=== PATIENT | female | born 1965 | race Caucasian/White ===

== ENCOUNTER 2018-06-28 10:00 | Outpatient (RCR) | payer BC, SELFPAY ==
--- NOTE | 2018-06-17 11:50 | PTTR_ITS ---
DATE: 06/17/18 SUBJECTIVE: Kaela states she was really down and out at her last visit. States she hasn't been very motivated to do anything physically. Two days ago she finally turned the corner, starting a walking program, walking 3 to 5 miles each day, as well as being compliant with her HEP of cervical stabilization. She is looking to play golf later today. OBJECTIVE: Manual therapy: (23806v6). Cervical mobs, up slips, down slopes, lateral glides, METs into rotation left and right followed by upper trapezius stretching using hold relax technique in supine. Also, performed an OA release. Direct treatment time: 9:00 til 9:30 A.M. She declined the need for ice, heat or estim post treatment. Plan: Continue as indicated above progressing cervical stabilization as tolerated. MM/gc
--- NOTE | 2018-06-23 10:00 | PTTR_ITS ---
DATE: 06/23/18 SUBJECTIVE: Stated her neck is doing pretty good today. Was able to golf evening and has been busy working on her house, fixing windows and siding. Bilateral traps are sore today, but feels like this is more use soreness like she exercised them too hard. Doing well with turning her head when driving. Has been doing her HEP and it is going well. Feels better overall now that she is getting out walking again. Had a stressful morning dealing with an employee. OBJECTIVE: Manual therapy: (35416a1). Patient received mobilization of neck and upper back while in supine and prone positions. This included OA release, upslips, down slopes and lateral glides, PRT to upper traps and lev scap. TPM to SCMs and pectoralis musculature. Soft tissue stretching into cervical rotation to the right and left. Transitioned to prone for TPM to rhomboids and mid trap regions. Therapeutic procedures (73543z1). * x HEP review: Added phase 3 of cervical stabilization exercises to HEP today. Patient was able to perform this exercise appropriately while in clinic today. See photocopy scanned into file for details. * x Provided skilled instruction in proper exercise performance * x Provided skilled manual cues to facilitate proper muscle recruitment and/ or movement pattern * Declined need for MHP or cryotherapy at conclusion of session. Direct treatment time: 35 minutes Total treatment time: 35 minutes
--- NOTE | 2018-06-28 10:30 | PTTR_ITS ---
DATE: 06/28/18 Co-treat with supervising PT, Kamron Lin. OBJECTIVE: Manual therapy: (88491g7). Performed STM to upper traps, lev scap, scalenes, SCMs and rhomboids post mobilization with supervising PT. Utilized tendon massage along the occiput, cervical and upper thoracic vertebrae and medial scap border. PRTs to upper traps, lev scap, scalenes and TPM to SCMs and rhomboids were also performed. Therapeutic procedures (81049h3). * x HEP review: Reviewed HEP of phase 2 AROM and phase 3 Unweighing head with patient to check for accuracy. Declined need for modalities at conclusion of session. Direct treatment time: 25 minutes Total treatment time: 25 minutes, post time spent with supervising PT.
--- NOTE | 2018-06-28 13:07 | PTTR_ITS ---
DATE: 06/28/18 SUBJECTIVE: Kaela continues to complain of left elbow discomfort. She does give consent for integrated dry needling for both her neck and her elbow. Overall, is complaining of generalized shoulder discomfort, but thinks it is more due to physical activity, handing out planks of wood to her as they reside their home and doing some carpentry work. Did play some golf last week, and held up well. Reports compliancy with her HEP. OBJECTIVE: Manual therapy: (36802v1). Cervical mobs, up slips, down slopes, lateral glides at a Grade 3 in the upper half of the cervical spine as well as AAROM into rotation and side bending. She also rec'd integrated dry needling (watts basis). Homeostatic points used: bilateral greater occipital with 1, left spinal accessory with 1, left dorsal scapula with 1, left supra scapula with 1, left antebrachial cutaneous with 1 and left deep radial with 1. Symptomatic points; 3 locations in the common extensor muscle belly with 1 needles. She completed the remainder of treatment with a [employer]. For details see her note. Direct treatment time: 15 min. Total treatment time: 30 min. Assessment: Continues to make functional improvements and increasing activity, i.e. playing golf, now, recreationally without significant limitation. Does present with signs of a lateral epicondylitis, pain with resisted wrist extension. Did issue her a HEP of self maintenance exercises, i.e. stretching. Plan: Follow up with Kaela next week. MM/gc
--- NOTE | 2018-07-06 09:02 | NT_ITS ---
07/06/18 Patient called to [facility] [place] her appt for tomorrow stating she was going to be out of town for a week or so and will contact us when she gets back. MM/dl
== END 2018-07-16 23:59 | disposition home or self-care (01) ==
LOC: PT 10:00
PROVIDERS: Referring Provider Family Medicine; Visit Provider Family Medicine
DX: M54.2 Cervicalgia (principal); Z47.89 Encounter for other orthopedic aftercare
CPT/HCPCS: 97110; 97140

== ENCOUNTER 2019-03-29 13:11 | Outpatient (CLI) | payer BC, SELFPAY ==
--- NOTE | 2019-03-29 13:00 | DI.RAD_ITS ---
SYMPTOMS/DIAGNOSIS: DYSPNEA, R06.00 PA AND LATERAL CHEST: Comparison is made with 3Dec10. The cardiac and mediastinal contours have a normal appearance. The lungs are well inflated and clear. No infiltrate, effusion or pulmonary edema is seen. The spine appears intact. IMPRESSION: Negative chest x-ray.
[2019-03-29 14:01] LABS: Abs Immature Grans 0.01 k/cumm (0.0-0.09); Absolute Basophil Count 0.05 k/cumm (0.0-0.2); Absolute Eosinophil Count 0.92 k/cumm (0.0-0.7); Absolute Lymphocyte Count 1.48 k/cumm (1.2-3.4); Absolute Monocyte Count 0.53 k/cumm (0.11-0.7); Absolute Neutrophil Count 6.11 k/cumm (1.2-6.7); Basophils % 0.5; Eosinophils % 10.1; HCT 39.1 % (36.0-46.0); HGB 13.4 g/dL (12.0-15.5); Immature Grans % 0.1; Lymphocytes % 16.3; Mean Corp. HGB Concentration 34.3 g/dL (32.0-36.0); Mean Corpuscular Hemoglobin 30.8 pg (27.0-33.0); Mean Corpuscular Volume 89.9 fL (80-95); Mean Platelet Volume 10.3 fL (8.0-11.0); Monocytes % 5.8; Neutrophils % 67.2; Platelet Count 230 x1000/uL (130-400); RBC 4.35 m/cumm (4.00-5.20); RBC Distribution Width 12.3 % (11.7-14.6)
[2019-03-29 14:37] LABS: ALT 26 U/L (12-78); AST 17 U/L (15-37); Albumin 4.4 g/dL (3.4-5.0); Alkaline Phosphatase 73 U/L (46-116); Anion Gap 11.3 mmol/L (3-11); BUN 17 mg/dL (7-18); Bilirubin, Total 0.5 mg/dL (0.2-1.0); CO2 26.7 mmol/L (21.0-32.0); CREATININE 0.78 mg/dL (0.55-1.02); Chloride 103 mmol/L (98-107); Glucose 100 mg/dL (70-100); Potassium 3.8 mmol/L (3.5-5.1); Sodium 141 mmol/L (136-145); Total Protein 7.3 g/dL (6.4-8.2)
== END 2019-03-29 13:31 ==
PROVIDERS: Visit Provider Family Medicine
DX: R06.00 Dyspnea, unspecified (principal)
CPT/HCPCS: 36415; 80053; 71046; 85025

== ENCOUNTER 2019-04-05 01:34 | Outpatient (CLI) | payer BC, SELFPAY ==
--- NOTE | 2019-04-05 | PFT_ITS ---
PULMONARY FUNCTION TEST REPORT Patient - Kaela Abreu 63 DATE OF SERVICE April 05, 2019 REQUESTING PROVIDER Tk Yang M.D. INTERPRETATION OF STUDY Spirometry shows mild obstructive airways disease with significant bronchodilator response. LUNG VOLUMES - Lung volumes show no evidence of restriction. DIFFUSION CAPACITY- Normal. AIRWAY RESISTANCE - Elevated. IMPRESSION Mild obstructive airways disease with significant bronchodilator response. This is associated with elevated airways resistance. When this study was compared to previous one from 01/14/2010, the patient has an overall 60 cc decline in FVC and FEV1 has remained stable. Overall the pulmonary function tests have been stable. Clinical correlation recommended. Hetal Handley M.D. ZIGGY/ T-05-22-19
[2019-04-05] MEDS: Inhaler, Assist Device 1 EACH MC (08:51)
[2019-04-05] MEDS: Albuterol HFA 18 GM 200 PUFF INH IH (08:51)
== END 2019-04-05 01:54 ==
PROVIDERS: Visit Provider Family Medicine
DX: R06.09 Other forms of dyspnea (principal); R05 Cough; R06.2 Wheezing; J98.8 Other specified respiratory disorders
CPT/HCPCS: 94060; 94150; 94726; 94729

== ENCOUNTER 2019-04-19 01:42 | Outpatient (CLI) | payer BC, SELFPAY ==
[2019-04-19] MEDS: Normal Saline Flush 10 ML SYR IVP (08:45)
[2019-04-19] MEDS: Gadoterate meglumine 20 ML VIAL 13 ML IVP (08:46)
--- NOTE | 2019-04-19 09:01 | DI.MRI_ITS ---
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 CERVICAL SPINE MRI: MRI examination of the cervical spine was performed utilizing the usual protocol with additional pre and post contrast T 1 weighted axial and sagittal fat sat images. The examination is compared to the previous examination of 09/02/17. The patient has had an interval C 6-7 fusion. Metallic artifact obscures the anterior to mid spinal canal at the C 6-7 level. No significant bony signal abnormality or enhancement identified at the levels visualized. Note is again made of mild bilateral neural foraminal narrowing at C 3-4 as seen on the previous examination. There may be slight left sided neural foraminal narrowing at C 4-5 as well. No new disc herniation identified at the levels evaluated but I would note that the intervertebral disc was not visualized at C 6-7 and the spinal canal cannot be adequately evaluated at this level. Spinal cord as visualized shows normal signal and normal diameter throughout. CONCLUSION: Artifact obscures C 6-7 disc level. Stable appearance of the cervical spine and spinal cord with no significant lesion apart from mild bilateral neural foraminal narrowing at C 3-4.
== END 2019-04-19 02:02 ==
PROVIDERS: PCP Family Medicine; Visit Provider Family Medicine
DX: M54.12 Radiculopathy, cervical region (principal); R20.2 Paresthesia of skin; Z98.1 Arthrodesis status
CPT/HCPCS: 72156

== ENCOUNTER 2019-06-06 09:04 | Outpatient (REF) | payer BC, SELFPAY ==
--- NOTE | 2019-06-06 08:45 | PAPFT_PTH ---
PATIENT: Kaela Abreu LOC: [facility] U#:[id number] AGE/SX: 54/F ROOM: RE06/06/[address]: Shelley Ogden : 1965 BED: DIS: 06/06/2019 SPEC #: [id number] RECD: 06/06/19 11:27 STATUS: SOMMER RECaroline #: [id number] ZAINAB: 06/06/19 08:[address]: Shelley Ogden DEPT: [facility] Cytology RECD BY: Denita Wilkerson ENTERED: 06/06/19 11:28 SP TYPE: PAPFT OTHR DR: Tk Yang MD Tissues: 1 - CX/ENDOCX FOR PAP SMEARS Procedures: PAP THIN PREP/UVM Screening HPV DNA PROBE Comments: [id number]
== END 2019-06-06 09:24 ==
LOC: LBN 09:04
PROVIDERS: PCP Family Medicine; Visit Provider Obstetrics & Gynecology Gynecology
DX: Z12.4 Encounter for screening for malignant neoplasm of cervix (principal); Z11.51 Encounter for screening for human papillomavirus (HPV)
CPT/HCPCS: 88142; 87624

== ENCOUNTER 2019-06-24 02:21 | Outpatient (CLI) | payer BC, SELFPAY ==
--- NOTE | 2019-06-24 08:30 | DI.MAMMO_ITS ---
SYMPTOM/DIAGNOSIS: SCREENING, Z12.31 MAMMOGRAMS: Mammograms were interpreted according to the usual protocol including computer analysis with CAD system, tomosynthesis and C view imaging. The breasts are of moderate density with fairly symmetrical distribution of fibroglandular tissue. No dominant mass or clumped microcalcification is identified in either breast. Current examination is compared with previous examinations including 05/2017 and there has been no gross interval change in appearance in comparison with the previous studies. CONCLUSION: No specific evidence of malignancy at this time. Routine screening examinations are suggested at yearly intervals in this age group according to the ACS/ACR guidelines. Category 1. Breast density, Category B. MQSA ASSESSMENT OF FINDINGS: Negative. Category 1. Patient will receive a letter notifying them of these results. BI-RADS category B. There are scattered areas of fibroglandular density.
== END 2019-06-24 02:41 ==
PROVIDERS: PCP Family Medicine; Visit Provider Obstetrics & Gynecology Gynecology
DX: Z12.31 Encounter for screening mammogram for malignant neoplasm of breast (principal)
CPT/HCPCS: 77063; 77067

== ENCOUNTER 2019-08-23 11:19 | Outpatient (CLI) | payer BC, SELFPAY ==
[2019-08-23 13:16] LABS: Abs Immature Grans 0.01 k/cumm (0.0-0.09); Absolute Basophil Count 0.03 k/cumm (0.0-0.2); Absolute Eosinophil Count 0.32 k/cumm (0.0-0.7); Absolute Lymphocyte Count 1.33 k/cumm (1.2-3.4); Absolute Monocyte Count 0.45 k/cumm (0.11-0.7); Absolute Neutrophil Count 4.64 k/cumm (1.2-6.7); Basophils % 0.4; Eosinophils % 4.7; HCT 38.3 % (36.0-46.0); HGB 13.1 g/dL (12.0-15.5); Immature Grans % 0.1; Lymphocytes % 19.6; Mean Corp. HGB Concentration 34.2 g/dL (32.0-36.0); Mean Corpuscular Hemoglobin 30.9 pg (27.0-33.0); Mean Corpuscular Volume 90.3 fL (80-95); Mean Platelet Volume 10.2 fL (8.0-11.0); Monocytes % 6.6; Neutrophils % 68.6; Platelet Count 282 x1000/uL (130-400); RBC 4.24 m/cumm (4.00-5.20); RBC Distribution Width 12.3 % (11.7-14.6); White Blood Cell Count 6.78 k/cumm (4.4-10.8)
[2019-08-23 13:21] LABS: ALT 41 U/L (14-59); AST 32 U/L (15-37); Albumin 4.2 g/dL (3.4-5.0); Alkaline Phosphatase 75 U/L (46-116); Anion Gap 6.7 mmol/L (3-11); BUN 18 mg/dL (7-18); Bilirubin, Total 0.4 mg/dL (0.2-1.0); CO2 31.3 mmol/L (21.0-32.0); CREATININE 0.88 mg/dL (0.55-1.02); Calcium 8.9 mg/dL (8.5-10.1); Chloride 103 mmol/L (98-107); Glucose 84 mg/dL (70-100); Potassium 4.6 mmol/L (3.5-5.1); Sodium 141 mmol/L (136-145); Total Protein 7.3 g/dL (6.4-8.2)
[2019-08-23 13:29] LABS: Bilirubin Negative (Negative); Blood Negative (Negative); Clarity Clear (Clear); Glucose Negative (Negative); Ketones Negative (Negative); Leukocyte Esterase Small (Negative); Nitrite Negative (Negative); Specific Gravity 1.015 (1.005-1.025); Urobilinogen 0.2 EU/dL (Up TO 0.2)
[2019-08-23 13:38] LABS: RBC Negative (0-2)
[2019-08-23 13:39] LABS: Bacteria Rare HPF (Negative); C & S Indicated? Yes; Casts Negative LPF (Negative); Crystals Negative HPF (Negative); Epithelial Cells Few HPF (Negative); Mucus Trace (Negative); Other Cells Rare Renal (Negative)
== END 2019-08-23 11:39 ==
PROVIDERS: PCP Family Medicine; Visit Provider Family Medicine
DX: Z01.818 Encounter for other preprocedural examination (principal); M54.12 Radiculopathy, cervical region
CPT/HCPCS: 36415; 80053; 81003; 81015; 85025; 87086

== ENCOUNTER 2019-08-26 20:07 | Outpatient (REF) | payer BC, SELFPAY ==
[2019-08-26 19:57] LABS: Bilirubin Negative (Negative); Blood Negative (Negative); Clarity Clear (Clear); Glucose Negative (Negative); Ketones Negative (Negative); Leukocyte Esterase Small (Negative); Nitrite Negative (Negative); Specific Gravity 1.015 (1.005-1.025); Urobilinogen 0.2 EU/dL (Up TO 0.2); pH 5.5 (5-8)
[2019-08-26 20:07] LABS: Bacteria Rare HPF (Negative); C & S Indicated? C&S Done As Ordered; Casts Negative LPF (Negative); Crystals Negative HPF (Negative); Epithelial Cells Many HPF (Negative); Mucus Negative (Negative); Other Cells Few Transitional (Negative); RBC 0-2 (0-2)
== END 2019-08-26 20:27 ==
LOC: LBN 20:07
PROVIDERS: PCP Family Medicine; Visit Provider Family Medicine
DX: N39.0 Urinary tract infection, site not specified (principal)
CPT/HCPCS: 81003; 81015; 87086

== ENCOUNTER 2019-09-01 19:42 | Outpatient (REF) | payer BC, SELFPAY ==
[2019-09-01 19:02] LABS: Bilirubin Negative (Negative); Blood Negative (Negative); Clarity Clear (Clear); Glucose Negative (Negative); Ketones Trace mg/dL (Negative); Leukocyte Esterase Trace (Negative); Nitrite Negative (Negative); Urobilinogen 0.2 EU/dL (Up TO 0.2)
[2019-09-01 19:19] LABS: Bacteria Negative HPF (Negative); C & S Indicated? C&S Done As Ordered; Casts Negative LPF (Negative); Crystals Negative HPF (Negative); Epithelial Cells Few HPF (Negative); Mucus Negative (Negative); Other Cells Negative (Negative); RBC 0-2 (0-2); WBC 0-2 HPF (0-5)
== END 2019-09-01 20:02 ==
LOC: NCHCN 19:42
PROVIDERS: PCP Family Medicine; Visit Provider Family Medicine
DX: Z87.440 Personal history of urinary (tract) infections (principal)
CPT/HCPCS: 81003; 81015; 87086

== ENCOUNTER 2020-07-12 02:31 | Outpatient (CLI) | payer BC, SELFPAY ==
--- NOTE | 2020-07-12 | DI.MRI_ITS ---
EXAM: MR CERVICAL SPINE WO/W CLINICAL HISTORY: ARM NUMBNESS,NECK PAIN,S/P CERVICAL FUSION,DYSESTHESIA,HEADACHE. TECHNIQUE: Multiplanar multisequence MRI was performed. FINDINGS: MR examination of the cervical spine was performed according to the usual protocol. There is a C6-7 fusion and artifact obscures this level. No other significant bony signal abnormality seen. Spinal cord appears of normal diameter and shows normal signal throughout At C2-3 there is mild prominence of the disc osteophyte complex with focal left paracentral prominenc e of the disc osteophyte complex, no gross neural impingement. At C3-4 there is mild bilateral neural foraminal narrowing. No disc herniation or central canal spin al stenosis. At C 4 5, there is mild left-sided neural foraminal narrowing. No disc herniation or central canal s urmila stenosis. At C5-6, there is bilateral neural foraminal narrowing. No disc herniation or central canal spinal s tenosis. At C7-T1 there are no significant findings. IMPRESSION: C6-7 fusion, artifact partially obscures this region, no cord lesion or deformity identified in the c ervical region. Multilevel neural foraminal narrowing as described above. No gross interval change appearance comparison with prior scan of April 2019. DATA REPOSITORY:
--- NOTE | 2020-07-12 | DI.CT_ITS ---
EXAM: CT CERVICAL SPINE WO CLINICAL HISTORY: ARM NUMBNESS,R20.0,S/P CERVICAL FUSION,Z98.1,DYSESTHESIA,R20.8,NECK PAIN, TECHNIQUE: COMPARISON: No exams were available for comparison FINDINGS: CT examination cervical spine was performed to the usual protocol. Note is made disc replacement at C6-7 posterior Ruiz rods bilaterally at this level. Fixation apparatus appears intact well sea jo ann. Minimal endplate hypertrophic changes noted at C6-7 without significant central canal spinal st enosis. Neural foramina appear intact as visualized bilaterally. No gross disc herniation by CT cri teria. Tracheolaryngeal structures and lung apices appear normal. No significant cervical mass or a denopathy. IMPRESSION: Intact posterior fixation hardware and prosthetic disc at C6-7. no other significant findings. RADIATION DOSE DELIVERED: 309.74mGy.cm Total DLP
[2020-07-12] MEDS: Gadoterate meglumine 20 ML VIAL 14 ML IVP (10:27)
== END 2020-07-12 02:51 ==
PROVIDERS: PCP Family Medicine; Visit Provider Neurological Surgery
DX: M48.02 Spinal stenosis, cervical region (principal); R20.0 Anesthesia of skin; M54.2 Cervicalgia; Z98.1 Arthrodesis status
CPT/HCPCS: 72125; 72156

== ENCOUNTER 2021-08-14 01:48 | Outpatient (CLI) | payer BC, SELFPAY ==
--- NOTE | 2021-08-14 07:00 | DI.MAMMO_ITS ---
Exam(s) MAMMO SCREENING EXAM: MAMMO SCREENING CLINICAL HISTORY: screening.Z12.39. TECHNIQUE: Bilateral full field digital CC and MLO mammographic images were obtained with 3D tomosyn thesis and utilizing computer aided detection (CAD). COMPARISON: Prior mammograms dating back to 2014, the most recent being June 2019. FINDINGS: Fibroglandular tissue pattern is moderately dense. There are no CAD designations. There are no new spiculated masses nor malignant appearing microcalcification groups. There is no significant architectural distortion nor skin thickening-retraction. IMPRESSION: Dense bilateral fibroglandular tissue. No obvious radiographic evidence of malignancy nor significan t change compared to prior mammograms listed above. BI-RADS Category 1 - Negative Breast Density - Category C - Heterogeneously dense Breast density Category C or D implies that the patient has dense breast tissue. Dense breast tissue can make it harder to find cancer on a mammogram. Dense breast tissue is also associated with an incr eased risk of breast cancer. This information about the result of the mammogram report was provided to the patient to raise their awareness. Use this report when you speak with the patient about their risks for breast cancer, which includes their family history. At that time, you may recommend additional screening tests (Ultrasoun d or MRI) as these tests may add significant information. A negative radiographic report should not delay biopsy if a dominant or clinically suspicious mass is present. Up to ten percent of cancers are not identified on mammography. A negative report may reinforce clinical impression. Adenosis and dense breasts may obscure an underlying neoplasm. False positive reports average 6 to 10%. Patient will receive a letter notifying them of these results.
== END 2021-08-14 02:08 ==
PROVIDERS: PCP Nurse Practitioner Family; Visit Provider Obstetrics & Gynecology
DX: Z12.31 Encounter for screening mammogram for malignant neoplasm of breast (principal)
CPT/HCPCS: 77063; 77067

== ENCOUNTER 2022-06-20 01:50 | Outpatient (CLI) | payer BC, SELFPAY ==
--- OUTSIDE RECORDS SUMMARY | 2022-06-20 01:53 | XMS_ITS | Encounter Summary ---
:1965 Author Organization [facility] [place] [address] Care Team Providers Name Role Phone Tk Yang MD Primary Care Provider Reason for Referral Diagnostic Test (Routine) - Closed Specialty Diagnoses / Procedures Referred By Contact Refer red To Contact Radiology Diagnoses Cervical radiculopathy Itching Neck pain Justino Gusman MD [facility] Rad Ct Scan Procedures CT MYELOGRAM CERVICAL SPINE [address] [phone] Referral ID Status Reason Start Date Expiration Date Visits V isits Requested Authorized [id number] Closed Specialty 05/16/2019 07/14/2019 1 1 Service Requested Reason for Visit Diagnostic Test (Routine) - Closed Specialty Diagnoses / Procedures Referred By Contact Refer red To Contact Radiology Diagnoses Cervical radiculopathy Itching Neck pain Justino Gusman MD [facility] Rad Ct Scan Procedures CT MYELOGRAM CERVICAL SPINE [address] [address] Referral ID Status Reason Start Date Expiration Date Visits V isits Requested Authorized [id number] Closed Specialty 05/16/2019 07/14/2019 1 1 Service Requested Encounter Details Date Type Department Care Team Description 06/16/[address] Scan at [facility] Justino Gusman, Cervical radiculopathy; [facility]; [facility] [address] [id number] [facility] [phone] Social History Tobacco Use Types Packs/Day Years Used Date Never Smoker Smokeless Tobacco: Never Used Sex Assigned at Date Recorded Not on file documented as of this encounter Medications at Time of Discharge Medication Sig Dispensed Refills Start Date End Date triamcinolone (KENALOG) 0.1 Apply to itchy 60 g 0 /0 06/2017 % Cream areas on arms twice daily for 2 weeks documented as of this encounter Plan of Treatment Not on filedocumented as of this encounter Procedures Procedure Name Priority Date/Time Associated Diagnosis Comme nts CT MYELOGRAM Routine 06/16/2019 3:18 PM Cervical Results f or this CERVICAL SPINE EDT radiculopathy procedure are in Itching the results Neck pain section. documented in this encounter Results CT Myelogram Cervical Spine (06/16/2019 3:18 PM EDT) Anatomical Region Laterality Modality C-spine Computed Tomography Specimen (Source) Anatomical Location Collection Method / Collectio n Time Received Time / Laterality Volume Impressions 06/16/2019 4:35 PM EDT 1. ??Mild spinal canal stenosis at C6-C7 secondary to posterior disc osteophyte complex and buckling of the ligamentum f lavum. 2. ??Neural foraminal narrowing is most pronounced at C3-C4 and C6-C7, as detailed above. I have personally reviewed the image(s) and the residents interpretation and agree with the findings, Torito Ching at 06/16/2019 4:35 PM Thank you for letting us participate in the care of this patient. For questions regarding this report, please contact e number below. ? Narrative 06/16/2019 4:35 PM EDT EXAMINATION: CT MYELOGRAM CERVICAL SPINE CLINICAL HISTORY: hx cervical disc repla cement recurrent cervical radicular symptoms artifact on mri TECHNIQUE: CT myelogram of the cervical spine was p erformed following a fluoroscopic-guided lumbar puncture with instillation of 10 cc of Omnipaque 300 into the subarachnoid space. COMPARISON: MRI of the cervical spine 04/19/2019. Radiographs of the cervical spine 018 and 01/01/2018. FINDINGS: There is unchanged minimal anterolisthes is of C3 on C4. The patient is status post disc replacement at C6-C7. Hardware is intact. No perihardware lucency. Hardware alignment is unchanged. No evid ence of hardware loosening or periprosthetic fracture. No prevertebral soft tissue swelling. ??There is contrast opacification of the subarachno id space surrounding the basal cisterns and cervical spine and upper thoracic sp ine. No intradural filling defects. Normal craniocervical junction. Normal m orphology of the cervical spinal cord. C2-3: Small disc protrusion, eccentric t o the left, produces mild spinal canal narrowing. There are uncovertebral hyper trophic and facet hypertrophic changes. Facet hypertrophic changes are most sign ificant on the left. No neural foraminal narrowing. C3-4: Minimal disc protrusion produces m inimal spinal canal narrowing. There is moderate right and moderate to severe le ft neural foraminal narrowing secondary to uncovertebral and facet hypertrophic changes. C4-5: Minimal disc protrusion. No signif icant spinal canal narrowing. There is mild left and no right neural foraminal narrowing. C5-6: Minimal disc protrusion. No signif icant spinal canal narrowing. There is mild bilateral neural foraminal narrowin g secondary to uncovertebral and facet hypertrophic changes. C6-7: Posterior disc osteophyte complex indents the ventral thecal sac but does not contact the spinal cord. In addition there is buckling of the ligamentum flavum which narrows the posterior epidu ral space. Overall there is mild spinal canal narrowing. There is moderate bilat eral neural foraminal narrowing secondary to uncovertebral and facet hyp ertrophic changes. C7-T1: Normal disc. No spinal canal or n eural foraminal narrowing. Degenerative changes in the left tempora l mandibular joints characterized by subchondral cystic changes in the mandib ular condyle. Visualized mastoid air cells are clear. There is mucosal thicke jimbo of the visualized maxillary sinuses, right greater than left. Visual ized apices are clear. Procedure Note Toriot Ching MD - 06/16/2019Formatt ing of this note might be different from the original. EXAMINATION: CT MYELOGRAM CERVICAL SPINE CLINICAL HISTORY: hx cervical disc repla cement recurrent cervical radicular symptoms artifact on mri TECHNIQUE: CT myelogram of the cervical spine was p erformed following a fluoroscopic-guided lumbar puncture with instillation of 10 cc of Omnipaque 300 into the subarachnoid space. COMPARISON: MRI of the cervical spine 04/19/2019. Radiographs of the cervical spine 018 and 01/01/2018. FINDINGS: There is unchanged minimal anterolisthes is of C3 on C4. The patient is status post disc replacement at C6-C7. Hardware is intact. No perihardware lucency. Hardware alignment is unchanged. No evid ence of hardware loosening or periprosthetic fracture. No prevertebral soft tissue swelling. There is contrast opacification of the subarachno id space surrounding the basal cisterns and cervical spine and upper thoracic sp ine. No intradural filling defects. Normal craniocervical junction. Normal m orphology of the cervical spinal cord. C2-3: Small disc protrusion, eccentric t o the left, produces mild spinal canal narrowing. There are uncovertebral hyper trophic and facet hypertrophic changes. Facet hypertrophic changes are most sign ificant on the left. No neural foraminal narrowing. C3-4: Minimal disc protrusion produces m inimal spinal canal narrowing. There is moderate right and moderate to severe le ft neural foraminal narrowing secondary to uncovertebral and facet hypertrophic changes. C4-5: Minimal disc protrusion. No signif icant spinal canal narrowing. There is mild left and no right neural foraminal narrowing. C5-6: Minimal disc protrusion. No signif icant spinal canal narrowing. There is mild bilateral neural foraminal narrowin g secondary to uncovertebral and facet hypertrophic changes. C6-7: Posterior disc osteophyte complex indents the ventral thecal sac but does not contact the spinal cord. In addition there is buckling of the ligamentum flavum which narrows the posterior epidu ral space. Overall there is mild spinal canal narrowing. There is moderate bilat eral neural foraminal narrowing secondary to uncovertebral and facet hyp ertrophic changes. C7-T1: Normal disc. No spinal canal or n eural foraminal narrowing. Degenerative changes in the left tempora l mandibular joints characterized by subchondral cystic changes in the mandib ular condyle. Visualized mastoid air cells are clear. There is mucosal thicke jimbo of the visualized maxillary sinuses, right greater than left. Visual ized apices are clear. IMPRESSION 1. Mild spinal canal stenosis at C6-C7 s econdary to posterior disc osteophyte complex and buckling of the ligamentum f lavum. 2. Neural foraminal narrowing is most pr onounced at C3-C4 and C6-C7, as detailed above. I have personally reviewed the image(s) and the residents interpretation and agree with the findings, Torito Ching at 06/16/2019 4:35 PM Thank you for letting us participate in the care of this patient. For questions regarding this report, please contact e number below. 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
--- OUTSIDE RECORDS SUMMARY | 2022-06-20 01:53 | XMS_ITS | Encounter Summary ---
:1965 Author Organization [facility] [place] [address] Care Team Providers Name Role Phone Tk Yang MD Primary Care Provider Encounter Details Date Type Department Care Team Description 10/07/2019 Ancillary Procedure Radiology XRay at Justino Gusmna S/ P cervical spinal the Multi-Specialty MD [facility] at [facility] [address] [place]- [id number] [place] [address] Social History Tobacco Use Types Packs/Day Years Used Date Never Smoker Smokeless Tobacco: Never Used Sex Assigned at Date Recorded Not on file documented as of this encounter Plan of Treatment Not on filedocumented as of this encounter Procedures Procedure Name Priority Date/Time Associated Diagnosis Comme nts XR CERVICAL SPINE 1 Routine 10/07/2019 10:54 AM S/P cervical s urmila Results for this VIEW EST fusion procedure are i n the results section. documented in this encounter Results XR Cervical Spine 1 View (10/07/2019 10:54 AM EST) Anatomical Region Laterality Modality C-spine N/A Digital Radiography Specimen (Source) Anatomical Location Collection Method / Collectio n Time Received Time / Laterality Volume Impressions 10/07/2019 11:01 AM EST Status post interval posterior transpedicular fusion at C6-C7. No evidence of complication. Alignment is anatomic. Thank you for letting us participate in the care of this patient. For questions regarding this report, please contact e number below. ? Narrative 10/07/2019 11:01 AM EST EXAMINATION: XR CERVICAL SPINE 1 VIEW CLINICAL HISTORY: s/p cervical spinal fu dick, lat view only TECHNIQUE: 1 views of the cervical spine COMPARISON: Presurgical cervical spine myelogram 06/16 FINDINGS: Interval posterior fusion at C6-C7. Hard lewis components are intact and in good position. No suspicious lucency adjacent to the hardware components. Alignment is anatomic. No displaced fracture. No p revertebral soft tissue swelling. Facet arthropathy is moderate at C3-C4 a nd C7-T1. Procedure Note Mariano Richter MD - 10/07/2019Formattin g of this note might be different from the original. EXAMINATION: XR CERVICAL SPINE 1 VIEW CLINICAL HISTORY: s/p cervical spinal fu dick, lat view only TECHNIQUE: 1 views of the cervical spine COMPARISON: Presurgical cervical spine myelogram 06/16 FINDINGS: Interval posterior fusion at C6-C7. Hard lewis components are intact and in good position. No suspicious lucency adjacent to the hardware components. Alignment is anatomic. No displaced fracture. No p revertebral soft tissue swelling. Facet arthropathy is moderate at C3-C4 a nd C7-T1. IMPRESSION Status post interval posterior transpedi cular fusion at C6-C7. No evidence of complication. Alignment is anatomic. Thank you for letting us participate in the care of this patient. For questions regarding this report, please contact e number below. Justino Gusman MD IMG DX ORDERABLES documented in this encounter Visit Diagnoses Diagnosis S/P cervical spinal fusion Arthrodesis status documented in this encounter Care Teams Weir Fisher Relationship Specialty Start Date End Date Tk Yang MD PCP - General General Internal Medicine 06/15/19 [address] [place] [address] documented as of this encounter
--- OUTSIDE RECORDS SUMMARY | 2022-06-20 01:53 | XMS_ITS | Encounter Summary ---
:1965 Author Organization [facility] [place] [address] Care Team Providers Name Role Phone Sincere Murray MD Primary Care Provider Encounter Details Date Type Department Care Team Description 07/24/2017 [facility] [address] [facility] [place] [address] Social History Tobacco Use Types Packs/Day Years Used Date Never Smoker Smokeless Tobacco: Never Used Sex Assigned at Date Recorded Not on file documented as of this encounter Plan of Treatment Not on filedocumented as of this encounter Visit Diagnoses Not on filedocumented in this encounter Care Teams Silicator Relationship Specialty Start Date End Date Sincere Murray MD PCP - General Family Medicine 10/13/16 06/14/[address] [place] [address] documented as of this encounter
--- OUTSIDE RECORDS SUMMARY | 2022-06-20 01:53 | XMS_ITS | Encounter Summary ---
:1965 Author Organization [facility] [place] [address] Care Team Providers Name Role Phone Sincere Murray MD Primary Care Provider Encounter Details Date Type Department Care Team Description 10/14/2017 Interpretation Only Karolina Chackoi Justino Tavarez MD [address] [place] [address] [place] [address] [phone] (Wo rk) Social History Tobacco Use Types Packs/Day Years Used Date Never Smoker Smokeless Tobacco: Never Used Sex Assigned at Date Recorded Not on file documented as of this encounter Plan of Treatment Not on filedocumented as of this encounter Procedures Procedure Name Priority Date/Time Associated Diagnosis Comme nts XR CERVICAL SPINE 1 Routine 10/14/2017 1:22 PM Re sults for this VIEW EST procedure are i n the results section. documented in this encounter Results XR Cervical Spine 1 View (10/14/2017 1:22 PM EST) Anatomical Region Laterality Modality C-spine N/A Radiographic Imaging Specimen (Source) Anatomical Collection Method Collection Time Re ceived Time Location / / Volume Laterality 10/14/2017 1:22 PM EST Impressions 10/14/2017 1:42 PM EST C6-C7 disc arthroplasty without evidence of complication. Narrative 10/14/2017 1:42 PM EST EXAMINATION: SPINE CERVICAL (1VW) CLINICAL HISTORY: ANTERIOR DISC ARTHOPLA STY AT C6-7, ?? TECHNIQUE: Lateral cervical spine radiog raph COMPARISON: None FINDINGS: Status post C6-C7 disc arthroplasty. Art hroplasty components are in good position. Cervical spine alignment is no rmal. Intervertebral disc space height is preserved at remaining levels. Procedure Note Mariano Richter MD - 10/14/2017Formattin g of this note might be different from the original. EXAMINATION: SPINE CERVICAL (1VW) CLINICAL HISTORY: ANTERIOR DISC ARTHOPLA STY AT C6-7, TECHNIQUE: Lateral cervical spine radiog raph COMPARISON: None FINDINGS: Status post C6-C7 disc arthroplasty. Art hroplasty components are in good position. Cervical spine alignment is no rmal. Intervertebral disc space height is preserved at remaining levels. IMPRESSION C6-C7 disc arthroplasty without evidence of complication. Justino Gusman MD IMG DX ORDERABLES documented in this encounter Visit Diagnoses Not on filedocumented in this encounter Care Teams Audio/Video Technician Relationship Specialty Start Date End Date Sincere Murray MD PCP - General Family Medicine 10/13/16 06/14/[address] [place] [address] documented as of this encounter
--- OUTSIDE RECORDS SUMMARY | 2022-06-20 01:53 | XMS_ITS | Encounter Summary ---
:1965 Author Organization [facility] [place] [address] Care Team Providers Name Role Phone Sincere Murray MD Primary Care Provider Encounter Details Date Type Department Care Team Description 06/04/2019 Orders Only Radiology Ba Reynolds Cervical radiculopathy [facility] MD Dariusz (Primary Dx) [place] [address] RADIOLOGY DEPT [phone] [place], [place] [address] Social History Tobacco Use Types Packs/Day Years Used Date Never Smoker Smokeless Tobacco: Never Used Sex Assigned at Date Recorded Not on file documented as of this encounter Progress Notes Ba Reynolds D - 06/04/2019 7:14 PM EDT Images from the original note were not included. INTERVENTIONAL NEURORADIOLOGY FOCUSED H&P and PRE-PROCEDURE NOTE: PCP: Sincere Murray MD Referring Provider: No ref. provider found Planned Procedure: Fluoro guided lumbar puncture and CT myelogram of the cervical spine Procedure Indication: Recurrent radicular symptoms after C6-6 disc replacement, with artifact complicating interpretation of MRI There are no answered order specific questions. Presenting Diagnosis/ Complaint: Kaela Abreu is a 54 y.o. female with a history of C6-C7 disc replacement with report of recurrent radicular symptoms. Cervical spine MRI on 04/19/2019 shows artifact at the level of the hardware, which complicates interpretation. Neuroradiology is consulted for lumbarpuncture and CT Myelogram of the cervical spine. Past Medical/Surgical History: Patient Active Problem List Diagnosis Code ??? Seborrheic keratosis, inflamed L82.0 ??? Nevus D22.9 ??? Brachioradial pruritus L29.9 No past medical history on file. No past surgical history on file. Medications: Current Outpatient Medications on File Prior to Visit Medication Sig Dispense Refill ??? triamcinolone (KENALOG) 0.1 % Cream Apply to itchy areas on arms twice daily for 2 weeks 60 g 0 No current facility-administered medications on file prior to visit. Allergies: Patient has no known allergies. Social History and Habits: Social History Socioeconomic History ??? Marital status: Spouse name: Not on file ??? Number of children: Not on file ??? Years of education: Not on file ??? Highest education level: Not on file Occupational History ??? Not on file Social Needs ??? Financial resource strain: Not on file ??? Food insecurity: Worry: Not on file Inability: Not on file ??? Transportation needs: Medical: Not on file Non-medical: Not on file Tobacco Use ??? Smoking status: Never Smoker ??? Smokeless tobacco: Never Used Substance and Sexual Activity ??? Alcohol use: Not on file ??? Drug use: Not on file ??? Sexual activity: Not on file Lifestyle ??? Physical activity: Days per week: Not on file Minutes per session: Not on file ??? Stress: Not on file Relationships ??? Social connections: Talks on phone: Not on file Gets together: Not on file Attends restorationism service: Not on file Active member of club or organization: Not on file Attends meetings of clubs or organizations: Not on file Relationship status: Not on file ??? Intimate partner violence: Fear of current or ex partner: Not on file Emotionally abused: Not on file Physically abused: Not on file Forced sexual activity: Not on file Other Topics Concern ??? Not on file Social History Narrative ??? Not on file Significant Family History: No family history on file. Pertinent ROS: as per HPI Labs: Imaging: Reviewed Physical Exam: Pending (to be performed in angio the day of procedure) ASA: Pending (to be assessed in angio the day of procedure) Mallampati Class: Pending (to be assessed in angio the day of procedure) Assessment: Kaela Abreu is a 54 y.o. female with a history of C6-C7 disc replacement with report of recurrent radicular symptoms. Cervical spine MRI on 04/19/2019 shows artifact at the level of the hardware, which complicates interpretation. Neuroradiology is consulted for lumbar puncture and CT Myelogram of the cervical spine. Case discussed with Plan: Fluoro guided lumbar puncture and CT myelogram of the cervical spine Position: Prone for LP Sedation: None. Medications to hold: None Labs to order: PLT and INR (ordered) Medications for procedure: Lidocaine for local analgesia, Omnipaque 300 Pathology present: No Consent: to be obtained day of procedure Ba Reynolds MD Neuroradiology fellow 06/04/2019 documented in this encounter Plan of Treatment Not on filedocumented as of this encounter Results Prothrombin Time (06/16/2019 12:06 PM EDT) athologist Signature PT 10.7 9.4 - 12.5 [facility] LABORATORY INR [address].9 [facility] Comment: An INR <2.0 indicates adequate procoagul ant activity for hemostasis in most patients without underlying bleeding dis orders, though the INR may not adequately reflect hemostatic capacity i n patients with liver disease and synthetic impairment. The recommended ta rget INR range for therapeutic anticoagulation is 2.0 ? 3.0 for most applications, though lower and higher ranges may be appropriate depending on c linical circumstances. Specimen Anatomical Collection Method Collection Time Receive d Time (Source) Location / / Volume Laterality Blood specimen 06/16/2019 12:06 9 (specimen) PM EDT 12:12 PM EDT Resulting Agency Comment Spec In Lab Viraj Padilla MD HEMATOLOGY ORDERABLES Performing Organization Address City/State/[place] [address] Hemogram (06/16/2019 12:06 PM EDT) P athologist Signature WBC 5.5 4.0 - 9.5 [facility] x10(3)/[facility] LABORATORY RBC 4.28 4.00 - [facility] 5.21 [facility] x10(6)/[facility] LABORATORY Hemoglobin 13.0 11.7 - [facility] 15.5 gm/dL [facility] LABORATORY Hematocrit 38.2 35.7 - [place] 45.8 % [facility] LABORATORY MCV 89.3 82.6 - [place] 94.4 [facility] LABORATORY MCH 30.4 27.1 - [place]IG[place] 32.0 pg [facility] LABORATORY MCHC 34.0 31.7 - [place] 35.0 gm/dL [facility] LABORATORY Platelets 224 145 - 357 [facility] x10(3)/[facility] LABORATORY RDWSD 38.5 37.0 - [place] 46.0 [facility] LABORATORY RDWCV 11.9 11.5 - [facility] GR[facility]EL[facility] 14.1 % [facility] LABORATORY MPV 10.2 7.6 - 12.9 [facility] LABORATORY nRBC % Auto 0.0 % [facility] nRBC Abs Auto 0.000 0.000 - [facility] 0.000 [facility] x10(3)/[facility] LABORATORY Specimen Anatomical Collection Method Collection Time Receive d Time (Source) Location / / Volume Laterality Blood specimen 06/16/2019 12:06 9 (specimen) PM EDT 12:12 PM EDT Resulting Agency Comment Spec In Lab Viraj Padilla MD HEMATOLOGY ORDERABLES Performing Organization Address City/State/[place] [address] documented in this encounter Visit Diagnoses Diagnosis Cervical radiculopathy - Primary Brachial neuritis or radiculitis nos documented in this encounter Care Teams Pantograph Setter Relationship Specialty Start Date End Date Sincere Murray MD PCP - General Family Medicine 10/13/16 06/14/[address] [place] [address] documented as of this encounter
--- OUTSIDE RECORDS SUMMARY | 2022-06-20 01:53 | XMS_ITS | Encounter Summary ---
:1965 Author Organization [facility] Address [address] [place] [address] Care Team Providers Name Role Phone Tk Yang MD Primary Care Provider Encounter Details Date Type Department Care Team Description 06/16/2019 Hospital Encounter XRay at [facility] Justino Gusman, Cervical radiculopathy; [address] MD Us; [place], [place] [address] [facility] Neck pain [address] [place], [place] [phone] [address] Social History Tobacco Use Types Packs/Day Years [...] Priority Date/Time Associated Diagnosis Comme nts XR FLUORO GUIDED Routine 06/16/2019 2:47 PM Cervical Resul ts for this MYELOGRAM CERVICAL EDT radiculopathy procedure are in SPINE Itching the results Neck pain section. documented in this encounter Results XR Fluoro Guided Myelogram Cervical Spine (06/16/2019 2:47 PM EDT) Anatomical Region Laterality Modality C-spine N/A Radio Fluoroscopy Specimen (Source) Anatomical Location Collection Method / Collectio n Time Received Time / Laterality Volume Impressions 06/16/2019 4:15 PM EDT 1. ??Technically successful lumbar puncture under fluoroscopy. 2. ??Omnipaque instilled into the subara chnoid space. 3. ??See separate dictation for CT compo nent of the myelogram. 4. ??I was present for the critical aspe cts of the procedure. Preliminary report signed by: Ba Reynolds at 06/16/2019 3:34 PM I have personally reviewed the image(s) and the residents interpretation and agree with the findings, Torito Ching at 06/16/2019 4:15 PM Thank you for letting us participate in the care of this patient. For questions regarding this report, please contact e number below. ? Narrative 06/16/2019 4:15 PM EDT EXAMINATION: XR FLUORO GUIDED MYELOGRAM CERVICAL SPINE CLINICAL HISTORY: hx cervical disc repla cement recurrent cervical radicular symptoms artifact on mri COMPARISON: Radiographs of the cervical spine 018 TECHNIQUE: After a discussion with the patient rega rding risks and benefits of this procedure, written and oral consent was obtained. The patient was placed prone on the fluo roscopy table. A time-out was conducted just before the start of the procedure to verify the correct patient and procedure, procedure location, and all relevant critical information. The location of the ??L3-L4 intervertebr al space was localized with fluoroscopy. The patient was marked, and then prepped and draped in a sterile surgical fashion. The patient's skin was anesthet ized using 1% lidocaine without epinephrine, 5 cc. A 20-gauge spinal nee dle was advanced into the subarachnoid space, which was confirmed with the retu rn of cerebrospinal fluid. ?? The cerebrospinal fluid was clear in col or. 10 cc of Omnipaque 300 was instilled und er fluoroscopic observation. ??Contrast was seen to flow freely surrounding nerv e roots. The stylet was replaced and the needle was removed. The table was elevat ed and the column of contrast was advanced to the cervical spine. The althea ent was then transported in the prone position to the CT scanner. There were no immediate complications. The patient was instructed to remain on their back for 2 hours. Procedure Note Torito Ching MD - 06/16/2019Formatt ing of this note might be different from the original. EXAMINATION: XR FLUORO GUIDED MYELOGRAM CERVICAL SPINE CLINICAL HISTORY: hx cervical disc repla cement recurrent cervical radicular symptoms artifact on mri COMPARISON: Radiographs of the cervical spine 018 TECHNIQUE: After a discussion with the patient rega rding risks and benefits of this procedure, written and oral consent was obtained. The patient was placed prone on the fluo roscopy table. A time-out was conducted just before the start of the procedure to verify the correct patient and procedure, procedure location, and all relevant critical information. The location of the L3-L4 intervertebral space was localized with fluoroscopy. The patient was marked, and then prepped and draped in a sterile surgical fashion. The patient's skin was anesthet ized using 1% lidocaine without epinephrine, 5 cc. A 20-gauge spinal nee dle was advanced into the subarachnoid space, which was confirmed with the retu rn of cerebrospinal fluid. The cerebrospinal fluid was clear in col or. 10 cc of Omnipaque 300 was instilled und er fluoroscopic observation. Contrast was seen to flow freely surrounding nerv e roots. The stylet was replaced and the needle was removed. The table was elevat ed and the column of contrast was advanced to the cervical spine. The althea ent was then transported in the prone position to the CT scanner. There were no immediate complications. The patient was instructed to remain on their back for 2 hours. IMPRESSION 1. Technically successful lumbar punctur e under fluoroscopy. 2. Omnipaque instilled into the subarach noid space. 3. See separate dictation for CT compone nt of the myelogram. 4. I was present for the critical aspect s of the procedure. Preliminary report signed by: Ba Reynolds at 06/16/2019 3:34 PM I have personally reviewed the image(s) and the residents interpretation and agree with the findings, Torito Ching at 06/16/2019 4:15 PM Thank you for letting us participate in the care of this patient. For questions regarding this report, please contact [facility] number below. Justino Gusman MD IMG FLUORO ORDERABLES documented in this encounter Visit Diagnoses Diagnosis Cervical radiculopathy Brachial neuritis or radiculitis nos Itching Unspecified pruritic disorder Neck pain Cervicalgia documented in this encounter Administered Medications Inactive Administered Medications - up to 3 most recent administrations Medication Order MAR Action Action Date Dose Rate Site iohexol (OMNIPAQUE) 300 mg/mL Given 06/16/2019 3:15 PM EDT 12 mL s solution 12 mL 12 mL, Other, ONCE, 1 dose, On Andria 06/16/19 at 1515, Warning Vesicant/Irritant Medication , Routine documented in this encounter Care Teams Rapid Transit Operator Relationship Specialty Start Date End Date Tk Yang MD PCP - General General Internal Medicine 06/15/[address] [place] [address] documented as of this encounter
--- OUTSIDE RECORDS SUMMARY | 2022-06-20 01:53 | XMS_ITS | Encounter Summary ---
:1965 Author Organization [facility] [place] [address] Care Team Providers Name Role Phone Sincere Murray MD Primary Care Provider Encounter Details Date Type Department Care Team Description 10/17/2016 Telephone Dermatology at [facility] Orly Oates LPN [address] [place] [address] Social History Tobacco Use Types Packs/Day Years Used Date Never Smoker Sex Assigned at Date Recorded Not on file documented as of this encounter Miscellaneous Notes Telephone Encounter - Orly Mcdonough LPN - 10/17/2016 9:44 AM EST Return call from patient. Reviewed biopsy results; two benign moles, no further treatment necessary,return to clinic as needed. Patient voiced understanding. Telephone Encounter - Orly Mcdonough LPN - 10/17/2016 9:28 AM EST Attempted to contact patient to review biopsy results; two benign moles, no further treatment necessary, return to clinic as needed. Message left. documented in this encounter Plan of Treatment Not on filedocumented as of this encounter Visit Diagnoses Not on filedocumented in this encounter Care Teams Sub Arc Operator Relationship Specialty Start Date End Date Sincere Murray MD PCP - General Family Medicine 10/13/16 06/14/[address] [place] [address] documented as of this encounter
--- OUTSIDE RECORDS SUMMARY | 2022-06-20 01:53 | XMS_ITS | Encounter Summary ---
:1965 Author Organization [facility] [place] [address] Care Team Providers Name Role Phone Tk Yang MD Primary Care Provider Encounter Details Date Type Department Care Team Description 06/16/2019 Laboratory Lab 3L Teo Cervical [place] [id number] Social History Tobacco Use Types Packs/Day Years Used Date Never Smoker Smokeless Tobacco: Never Used Sex Assigned at Date Recorded Not on file documented as of this encounter Plan of Treatment Not on filedocumented as of this encounter Procedures Procedure Name Priority Date/Time Associated Diagnosis Comme nts HEMOGRAM Routine 06/16/2019 12:06 PM Cervical radiculopath y Results for this EDT procedure are i n the results section. PROTHROMBIN TIME Routine 06/16/2019 12:06 PM Cervical radiculo harsh Results for this EDT procedure are i n the results section. documented in this encounter Results Hemogram (06/16/2019 12:06 PM EDT) P athologist Signature WBC 5.5 4.0 - 9.5 TE[facility] GRISELDA x10(3)/[facility] LABORATORY RBC 4.28 4.00 - TEO GRISELDA 5.21 [facility] x10(6)/[facility] LABORATORY Hemoglobin 13.0 11.7 - TEO GRISELDA 15.5 gm/dL [facility] LABORATORY Hematocrit 38.2 35.7 - TEO GRISELDA 45.8 % [facility] LABORATORY MCV 89.3 82.6 - TE[place] GRISELDA 94.4 fL [facility] LABORATORY MCH 30.4 27.1 - TEO GRISELDA 32.0 pg [facility] LABORATORY MCHC 34.0 31.7 - TEO VILLALOBOS 35.0 gm/dL [facility] LABORATORY Platelets 224 145 - 357 TE[facility]ILLALOBOS x10(3)/[facility] LABORATORY RDWSD 38.5 37.0 - TEO VILLAOLBOS 46.0 [facility] LABORATORY RDWCV 11.9 11.5 - TEO VILLALOBOS 14.1 % [facility] LABORATORY MPV 10.2 7.6 - 12.9 [facility] LABORATORY nRBC % Auto 0.0 % [facility] LABORATORY nRBC Abs Auto 0.000 0.000 - TEO VILLALOBOS 0.000 [facility] x10(3)/[facility] LABORATORY Specimen Anatomical Collection Method Collection Time Receive d Time (Source) Location / / Volume Laterality Blood specimen 06/16/2019 12:06 9 (specimen) PM EDT 12:12 PM EDT Resulting Agency Comment Spec In Lab Viraj Padilla MD HEMATOLOGY ORDERABLES Performing Organization Address City/[facility]/[place] [address] Prothrombin Time (06/16/2019 12:06 PM EDT) P athologist Signature PT 10.7 9.4 - 12.5 [facility] LABORATORY INR 0.9 [facility] LABORATORY Comment: An INR <2.0 indicates adequate [...] Organization Address City/State/[place] [address] documented in this encounter Visit Diagnoses Diagnosis Cervical radiculopathy Brachial neuritis or radiculitis nos documented in this encounter Care Teams Emergency Department Rn Relationship Specialty Start Date End Date Tk Yang MD PCP - General General Internal Medicine 06/15/[address] [facility] [place] [address] documented as of this encounter
--- OUTSIDE RECORDS SUMMARY | 2022-06-20 01:53 | XMS_ITS | Encounter Summary ---
:1965 Author Organization [facility] [place] [address] Care Team Providers Name Role Phone Tk Yang MD Primary Care Provider Encounter Details Date Type Department Care Team Description 07/12/2020 Ancillary Procedure Radiology Library at Tk Yang MD [facility] [place] [address] [address] [place], [place] [phone] (Wo rk) [phone] Social History Tobacco Use Types Packs/Day Years Used Date Never Smoker Smokeless Tobacco: Never Used Sex Assigned at Date Recorded Not on file documented as of this encounter Plan of Treatment Not on filedocumented as of this encounter Procedures Procedure Name Priority Date/Time Associated Diagnosis Comme nts FILM LIBRARY Routine 07/12/2020 3:53 PM Results f or this STORAGE ONLY CT EDT procedure ar e in SPINE the results section. documented in this encounter Results Film Library- Storage Only CT Spine (07/12/2020 3:53 PM EDT) Specimen (Source) Anatomical Location Collection Method / Collectio n Time Received Time / Laterality Volume Narrative [facility] [place] - 07/12/2020 3:53 PM EDT This exam is auto-finalizing. It's purpo se is for storage only. Tk Yang MD G FILM LIBRARY ORDERABLES Performing Organization Address City/State/ZIP Code Phon e Number [place], [place] documented in this encounter Visit Diagnoses Not on filedocumented in this encounter Care Teams Regulatory Submissions Associate Relationship Specialty Start Date End Date Tk Yang MD PCP - General General Internal Medicine 06/15/19 [address] [place] [address] documented as of this encounter
--- OUTSIDE RECORDS SUMMARY | 2022-06-20 01:53 | XMS_ITS | Encounter Summary ---
:1965 Author Organization [facility] [place] [address] Care Team Providers Name Role Phone Sincere Murray MD Primary Care Provider Encounter Details Date Type Department Care Team Description 04/19/2019 Ancillary Procedure Radiology at [facility] Justino Gusman MD [address] [place] [address] [facility] [place], [place] [address] (Wo rk) Social History Tobacco Use Types Packs/Day Years Used Date Never Smoker Smokeless Tobacco: Never Used Sex Assigned at Date Recorded Not on file documented as of this encounter Plan of Treatment Not on filedocumented as of this encounter Procedures Procedure Name Priority Date/Time Associated Diagnosis Comme nts FILM LIBRARY Routine 04/19/2019 12:00 AM Results for this STORAGE ONLY MR EDT procedure ar e in SPINE the results section. documented in this encounter Results Film Library- Storage Only MR Spine (04/19/2019 12:00 AM EDT) Specimen (Source) Anatomical Location Collection Method / Collectio n Time Received Time / Laterality Volume Narrative [place] - 04/20/2019 12:11 PM EDT This exam is auto-finalizing. It's purpo se is for storage only. Justino Gusman MD IMG FILM LIBRARY ORDERABLES Performing Organization Address City/State/ZIP Code Phon e Number [place], [place] documented in this encounter Visit Diagnoses Not on filedocumented in this encounter Care Teams Construction Inspector Relationship Specialty Start Date End Date Sincere Murray MD PCP - General Family Medicine 10/13/16 06/14/[address] [place] [address] [place] [address] documented as of this encounter
--- OUTSIDE RECORDS SUMMARY | 2022-06-20 01:53 | XMS_ITS | Encounter Summary ---
:1965 Author Organization [facility] [place] [address] Care Team Providers Name Role Phone Tk Yang MD Primary Care Provider Encounter Details Date Type Department Care Team Description 06/22/2019 Orders Only Radiology Ba Reynolds, [facility] [place] [address] [facility] [phone] RADIOLOGY DEPT [place], [place] [address] (Wo rk) Social History Tobacco Use Types Packs/Day Years Used Date Never Smoker Smokeless Tobacco: Never Used Sex Assigned at Date Recorded Not on file documented as of this encounter Progress Notes Ba Reynolds - 06/22/2019 10:36 AM EDT Progress Note Interval events: Received a call from Kaela Abreu . The patient had a uncomplicated lumbar puncture and CT myelogram on 06/16/2019 for ongoing workup of cervical radicular symptoms. There were no post procedural complications and patient was discharged home. The patient called today to report a headache that has come and gone since the procedure. The patient has been traveling extensively both for work and family obligations. She describes the headache as being centered in the back of her neck and radiating over her scalp. She did have nausea on Thursday, but that seems to have resolved. She does endorse that the headache is 7/10 and is relieved by lying down and exacerbated by standing up. She has tried analgesics with little relief. She also reports her chronic arm itching and paresthesias. Per report, she hasbeen in communication with Dr. Gusman (her neurosugeroun) and contacted radiology today to discuss management of her headache. 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 Plan She is traveling today from [facility] back to her house. She is going to monitor her symptoms, stay hydrated, and lie flat as much as possible. If her positional headache persists, she willcall radiology tomorrow to discuss options for coordinating a CT guided blood patch. The patient concurred with this plan. Ba Reynolds MD Neuroradiology fellow documented in this encounter Plan of Treatment Not on filedocumented as of this encounter Visit Diagnoses Not on filedocumented in this encounter Care Teams Machine Overhauler Relationship Specialty Start Date End Date Tk Yang MD PCP - General General Internal Medicine 06/15/19 1 [address] [place] [address] [place] [address] documented as of this encounter
--- OUTSIDE RECORDS SUMMARY | 2022-06-20 01:53 | XMS_ITS | Encounter Summary ---
:1965 Author Organization [facility] [place] [address] Care Team Providers Name Role Phone Tk Yang MD Primary Care Provider Encounter Details Date Type Department Care Team Description 07/12/2020 Ancillary Procedure Radiology Library at Tk Yang MD [facility] [place] [address] [address] [place], [place] [phone] (Wo rk) [phone] Social History Tobacco Use Types Packs/Day Years Used Date Never Smoker Smokeless Tobacco: Never Used Sex Assigned at Date Recorded Not on file documented as of this encounter Plan of Treatment Not on filedocumented as of this encounter Procedures Procedure Name Priority Date/Time Associated Diagnosis Comme nts FILM LIBRARY Routine 07/12/2020 3:53 PM Results f or this STORAGE ONLY MR EDT procedure ar e in SPINE the results section. documented in this encounter Results Film Library- Storage Only MR Spine (07/12/2020 3:53 PM EDT) Specimen (Source) Anatomical Location Collection Method / Collectio n Time Received Time / Laterality Volume Narrative [facility] [place] 2[place] - 07/12/2020 3:53 PM EDT This exam is auto-finalizing. It's purpo se is for storage only. Tk Yang MD G FILM LIBRARY ORDERABLES Performing Organization Address City/State/ZIP Code Phon e Number [place], [place] documented in this encounter Visit Diagnoses Not on filedocumented in this encounter Care Teams Vat Operator Relationship Specialty Start Date End Date Tk Yang MD PCP - General General Internal Medicine 06/15/19 [address] [place] [address] documented as of this encounter
--- OUTSIDE RECORDS SUMMARY | 2022-06-20 01:53 | XMS_ITS | Encounter Summary ---
:1965 Author Organization [facility] [place] [address] Care Team Providers Name Role Phone Tk Yang MD Primary Care Provider Encounter Details Date Type Department Care Team Description 09/24/2017 Interpretation Only [facility] Unknown [address] [place] [address] [place] [address] Social History Tobacco Use Types Packs/Day Years Used Date Never Smoker Smokeless Tobacco: Never Used Sex Assigned at Date Recorded Not on file documented as of this encounter Plan of Treatment Not on filedocumented as of this encounter Procedures Procedure Name Priority Date/Time Associated Diagnosis Comme nts XR C-ARM Routine 09/24/2017 7:57 AM Results f or this EST procedure are i n the results section . documented in this encounter Results XR C-Arm (09/24/2017 7:57 AM EST) Anatomical Region Laterality Modality Other Specimen (Source) Anatomical Collection Method Collection Time Re ceived Time Location / / Volume Laterality 09/24/2017 7:57 AM EST Narrative 09/24/2017 7:57 AM EST NL Historical Result Principal Tubing Drier: ?ANU YUSUF C-ARM IMAGES GREATER THAN ONE HOUR: DATE: 09/24/2017. INDICATION: Fusion of joint of cervical spine by anterior approach for deformity of the cervical spine. FINDINGS: Cumulative fluoroscopy time of 8 seconds was provided. No images were submitted. Dictated by: ??Tatum Nieto M.D. Signed By: Electronically Signed By: TATUM NIETO Date: 09/24/2017 1:34 PM Procedure Note Unknown - 09/21/2020Formatting of this n ote might be different from the original. NL Historical Result Principal Tubing Drier: TATUM NIETO C-ARM IMAGES GREATER THAN ONE HOUR: DATE: 09/24/2017. INDICATION: Fusion of joint of cervical spine by anterior approach for deformity of the cervical spine. FINDINGS: Cumulative fluoroscopy time of 8 seconds was provided. No images were submitted. Dictated by: Tatum Nieto M.D. Signed By: Electronically Signed By: TATUM NIETO Date: 09/24/2017 1:34 PM Unknown PACS IMAGES documented in this encounter Visit Diagnoses Not on filedocumented in this encounter Care Teams Pediatrics Physician Relationship Specialty Start Date End Date Tk Yang MD PCP - General General Internal Medicine 06/15/19 [address] [place] [address] [place] [address] documented as of this encounter
--- OUTSIDE RECORDS SUMMARY | 2022-06-20 01:53 | XMS_ITS | Encounter Summary ---
:1965 Author Organization [facility] [place] [address] Care Team Providers Name Role Phone Sincere Murray MD Primary Care Provider Encounter Details Date Type Department Care Team Description 01/01/2018 Interpretation Only Karolina Chackoi Justino Tavarez MD [address] [place] [address] [place] [address] [phone] (Wo rk) Social History Tobacco Use Types Packs/Day Years Used Date Never Smoker Smokeless Tobacco: Never Used Sex Assigned at Date Recorded Not on file documented as of this encounter Plan of Treatment Not on filedocumented as of this encounter Procedures Procedure Name Priority Date/Time Associated Diagnosis Comme nts XR CERVICAL SPINE 1 Routine 01/01/2018 10:13 AM R esults for this VIEW EST procedure are i n the results section. documented in this encounter Results XR Cervical Spine 1 View (01/01/2018 10:13 AM EST) Anatomical Region Laterality Modality C-spine N/A Radiographic Imaging Specimen (Source) Anatomical Collection Method Collection Time Re ceived Time Location / / Volume Laterality 01/01/2018 10:13 AM EST Impressions 01/01/2018 11:47 AM EST Stable appearance of the C6-7 disc arthroplasty Narrative 01/01/2018 11:47 AM EST EXAMINATION: SPINE CERVICAL (1VW) CLINICAL HISTORY: ASSESS HEALING, ?? TECHNIQUE: Lateral view of the cervical spine. COMPARISON: 10/14/2017 FINDINGS: Alignment is anatomic. There is no inter robyn change in the positioning of the C6-7 disc arthroplasty. Vertebral body h eights and intervertebral disc heights are preserved. Procedure Note Fabien Newman DO - 01/01/2018Formatt ing of this note might be different from the original. EXAMINATION: SPINE CERVICAL (1VW) CLINICAL HISTORY: ASSESS HEALING, TECHNIQUE: Lateral view of the cervical spine. COMPARISON: 10/14/2017 FINDINGS: Alignment is anatomic. There is no inter robyn change in the positioning of the C6-7 disc arthroplasty. Vertebral body h eights and intervertebral disc heights are preserved. IMPRESSION Stable appearance of the C6-7 disc arthr oplasty Justino Gusman MD IMG DX ORDERABLES documented in this encounter Visit Diagnoses Not on filedocumented in this encounter Care Teams Pocket Cutter Relationship Specialty Start Date End Date Sincere Murray MD PCP - General Family Medicine 10/13/16 06/14/[address] [place] [address] documented as of this encounter
--- OUTSIDE RECORDS SUMMARY | 2022-06-20 01:53 | XMS_ITS | Encounter Summary ---
:1965 Author Organization [place] [address] Care Team Providers Name Role Phone Tk Yang MD Primary Care Provider Encounter Details Date Type Department Care Team Description 06/16/2019 Hospital Encounter [place] [facility] Gusman MD [address] [address] [place] [address] [phone] Social History Tobacco Use Types Packs/Day Years Used Date Never Smoker Smokeless Tobacco: Never Used Sex Assigned at Date Recorded Not on file documented as of this encounter Discharge Instructions Discharge InstructionsFrancoise Aragon RN - 06/16/2019 2:50 PM EDT [facility] Myelogram Discharge Instructions A myelogram carries the risks of headache, bleeding and infection. Following these instructions willreduce these risks. 1. Go home and rest quietly for the remainder of the day. It is important to keep your head elevateduntil bedtime. You may resume your normal activities tomorrow. 2. You may resume your regular diet. Drink extra fluids for the next 24 hours. 3. You may have mild discomfort at the puncture site. If necessary, you may take Tylenol (one or ori990 mg tablets every 4 hours) for the first 24 hours after the procedure. 4. If you develop headache that is severe or lasts more than 2 days, call the Radiology Department at [facility] at the number below. 5. If you take anticoagulants such as Coumadin or Lovenox, consult with your primary care physician before resuming their use. Call [facility] immediately if you have: ?? Chills, fever, or stiff neck ?? Worsening pain, swelling, or redness around the puncture site ?? Temperature greater than 101 degrees fahrenheit ?? Drainage or bleeding from the puncture site ?? Severe headache ?? Numbness or loss of strength any place below the puncture site You may contact the Grants Specialist land acquisition manager at [phone] with any questions or concerns. Revised 11/30/15[facility] Myelogram Discharge Instructions A myelogram carries the risks of headache, bleeding and infection. Following these instructions willreduce these risks. 1. Go home and rest quietly for the remainder of the day. It is important to keep your head elevateduntil bedtime. You may resume your normal activities tomorrow. 2. You may resume your regular diet. Drink extra fluids for the next 24 hours. 3. You may have mild discomfort at the puncture site. If necessary, you may take Tylenol (one or oik975 mg tablets every 4 hours) for the first 24 hours after the procedure. 4. If you develop headache that is severe or lasts more than 2 days, call the Radiology Department at [facility] at the number below. 5. If you take anticoagulants such as Coumadin or Lovenox, consult with your primary care physician before resuming their use. Call [facility] immediately if you have: ?? Chills, fever, or stiff neck ?? Worsening pain, swelling, or redness around the puncture site ?? Temperature greater than 101 degrees fahrenheit ?? Drainage or bleeding from the puncture site ?? Severe headache ?? Numbness or loss of strength any place below the puncture site You may contact the [employer] Specialist land acquisition manager at [phone] with any questions or concerns. Revised 11/30/15 documented in this encounter Medications at Time of Discharge Medication Sig Dispensed Refills Start Date End Date triamcinolone (KENALOG) 0.1 Apply to itchy 60 g 0 06/2017 % Cream areas on arms twice daily for 2 weeks documented as of this encounter Plan of Treatment Not on filedocumented as of this encounter Visit Diagnoses Not on filedocumented in this encounter Care Teams Associate Professor Of Engineering Relationship Specialty Start Date End Date Tk Yang MD PCP - General General Internal Medicine 06/15/19 [address] [place] [address] [place] [address] documented as of this encounter
--- OUTSIDE RECORDS SUMMARY | 2022-06-20 01:53 | XMS_ITS | Encounter Summary ---
:1965 Author Organization [place] [address] Care Team Providers Name Role Phone Sincere Murray MD Primary Care Provider Reason for Visit Reason Comments Skin Check Follow-up Encounter Details Date Type Department Care Team Description 10/13/2016 Office Visit Dermatology at Javon Scott, Seborrh eic keratosis, inflamed; Evan MASTERS [place] [address] [place] DERMATOLOGY [place], [place] [phone] Social History Tobacco Use Types Packs/Day Years Used Date Never Smoker Sex Assigned at Date Recorded Not on file documented as of this encounter Progress Notes Javon Scott MD - 10/13/2016 10:45 AM EST PROBLEM: Skin lesion of concern. Kaela follows up after last seeing me in 2008. She has noted new growth of a lesion of the left anterior base of her neck and mole of many years present duration on the abdomen that has been often rubbed and irritated. She wanted these both to be removed. PHYSICAL EXAMINATION: Reveals a 3 mm waxy stuck-on appearing probable seborrheic keratosis on the left anterior base of her neck. She has a 1 cm soft slushy papule consistent with an intradermal nevus on her lower central abdomen, just above her waistline. ASSESSMENT AND PLAN: Bothersome irritated seborrheic keratosis/nevus sites A and B left base of neck, left anterior base of neck, and left lower central abdomen respectively. a. After obtaining informed consent, the site was anesthetized and removed with shave biopsy. b. After shave biopsy, site A measured 5 mm in diameter. Site B was 1.2 cm in diameter. Shave biopsy removed the entire lesion at both sites. c. Wound care instructions and supplies given. d. Return to clinic here p.r.n. for new lesions/concerns. We will notify her of the biopsy results in one week. CC: Sincere Murray MD documented in this encounter Plan of Treatment Not on filedocumented as of this encounter Visit Diagnoses Diagnosis Seborrheic keratosis, inflamed Inflamed seborrheic keratosis Nevus Benign neoplasm of skin, site unspecifie d documented in this encounter Care Teams Technician Anatomic Pathology Relationship Specialty Start Date End Date Sincere Murray MD PCP - General Family Medicine 10/13/16 06/14/[address] [place] [address] documented as of this encounter
[2022-06-20 07:37] LABS: Calculated LDL 125 mg/dL (<100); Cholesterol 209 mg/dL (<200); HDL Cholesterol 69 mg/dL (40-60); Triglyceride 75 mg/dL (<150)
[2022-06-20 07:43] LABS: Hemoglobin A1C 5.6 % (<5.7)
== END 2022-06-20 01:51 | disposition home or self-care (01) ==
LOC: LBO 01:50
PROVIDERS: PCP Nurse Practitioner Family; Visit Provider Nurse Practitioner Family
DX: Z13.220 Encounter for screening for lipoid disorders (principal); Z13.1 Encounter for screening for diabetes mellitus
CPT/HCPCS: 36415; 80061; 83036

== ENCOUNTER 2022-07-17 09:22 | Outpatient (REF) | payer BC, SELFPAY ==
--- NOTE | 2022-07-17 08:15 | PAPFT_PTH ---
PATIENT: Kaela Abreu LOC: [facility] U#:[id number] AGE/SX: 57/F ROOM: RE07/17/[address]: Balbina Biswas DO : 1965 BED: DIS: 07/17/2022 SPEC #: [id number] RECD: 07/17/22 13:15 STATUS: SOMMER REQ #: [id number] ZAINAB: 07/17/22 08:[address]: Balbina Biswas DEPT: [facility] Cytology RECD BY: Lashanda Palma ENTERED: 07/17/22 13:15 SP TYPE: PAPFT OTHR DR: Ranulfo Trevino, EFE Tissues: 1 - CX/ENDOCX FOR PAP SMEARS Procedures: PAP THIN PREP/UVM Screening HPV DNA PROBE Comments: [id number]
== END 2022-07-17 09:23 | disposition home or self-care (01) ==
LOC: LBN 09:22
PROVIDERS: PCP Nurse Practitioner Family; Visit Provider Obstetrics & Gynecology
DX: Z12.4 Encounter for screening for malignant neoplasm of cervix (principal); Z11.51 Encounter for screening for human papillomavirus (HPV)
CPT/HCPCS: 88142; 87624

== ENCOUNTER → 2022-08-15 00:32 | Outpatient (CLI) | payer BC, SELFPAY ==
--- NOTE | 2022-08-15 12:00 | DI.MAMMO_ITS ---
Exam(s) MAMMO SCREENING EXAM: MAMMO SCREENING CLINICAL HISTORY: screening TECHNIQUE: Mammograms were interpreted according to the usual protocol including computer analysis w [employer] CAD system, tomosynthesis and C-view imaging. COMPARISON: FINDINGS: The breasts are heterogeneously dense. No dominant mass or clumped microcalcification is identified in either breast. The current examination is compared with previous examinations including July 2021 and there has been no gross interval change in appearance in comparison with the prior studies. IMPRESSION: No specific evidence of malignancy at this time. Routine screening examinations are suggested at yea rly intervals in this age group according to the ACS ACR guidelines. BI-RADS Category 1 - Negative Breast Density - Category C - Heterogeneously dense
== END ==
PROVIDERS: PCP Nurse Practitioner Family; Visit Provider Obstetrics & Gynecology
DX: Z12.31 Encounter for screening mammogram for malignant neoplasm of breast (principal); R92.8 Other abnormal and inconclusive findings on diagnostic imaging of breast
CPT/HCPCS: 77063; 77067

== ENCOUNTER → 2023-08-18 00:25 | Outpatient (CLI) | payer BC, SELFPAY ==
--- NOTE | 2023-08-18 14:08 | DI.MAMMO_ITS ---
Exam(s) MAMMO SCREENING EXAM: MAMMO SCREENING CLINICAL HISTORY: screening, z12.39 TECHNIQUE: Mammograms were interpreted according to the usual protocol including computer analysis w Handprint CAD system, tomosynthesis and C-view imaging. COMPARISON: 2014 through 2021 FINDINGS: The breasts are composed of heterogeneously dense fibroglandular densities, Breast Density category C . No suspicious masses or suspicious microcalcifications are seen. No skin thickening or abnormal axillary lymph nodes are seen. There has been no significant change from prior exams. IMPRESSION: BI-RADS Category 1, Negative mammogram. Yearly screening mammography is recommended. Breast Density Category C, heterogeneously Dense. The mammogram demonstrates the patient's breast tissue is dense. Dense breast tissue is very common a nd is not abnormal but dense breast tissue can make it harder to find cancer on a mammogram. Also, de nse breast tissue may increase breast cancer risk. This information about the result of the mammogram report was provided to the patient to raise their awareness. Use this report when you speak with the patient about their risks for breast cancer, which includes their family history. At that time, you may recommend additional screening tests (Ultrasound or MRI) as they might be useful based on their r isk. A negative radiographic report should not delay biopsy if a dominant or clinically suspicious mass is present. Up to ten percent of cancers are not identified on mammography. A negative report may reinforce clinical impression. Adenosis and dense breasts may obscure an underlying neoplasm. False positive reports average 6 to 10%.
== END ==
PROVIDERS: PCP Nurse Practitioner Family; Visit Provider Obstetrics & Gynecology
DX: Z12.31 Encounter for screening mammogram for malignant neoplasm of breast (principal)
CPT/HCPCS: 77063; 77067

== ENCOUNTER 2024-06-28 02:38 | Outpatient (CLI) | payer BC, SELFPAY ==
--- OUTSIDE RECORDS SUMMARY | 2024-06-28 02:40 | XMS_ITS | Encounter Summary ---
Author Organization [place] [address] Care Team Providers Care Shipping And Receiving Clerk Name Role Phone Sincere Murray MD Primary Care Provider [phone] Encounter Details Date Type Department Care Team (Late st Contact Info) Description 03/10/2018 Interpretation Only [facility] [address] [facility] [place] [id number] Justino Gusman MD [address] [place], [place] [id number] Social History Tobacco Use Types Packs/Day Years Used Date Smoking Tobacco: Never Smokeless Tobacco: Never Sex and Gender Information Value Date Recorded Sex Assigned at Not on file Gender Identity Not on file Sexual Orientation Not on file documented as of this encounter Plan of Treatment Not on file documented as of this encounter Procedures Procedure Name Priority Date/Time Associated Diagnosis Comments XR CERVICAL SPINE 2 OR 3 VIEWS Routine 03/10/2018 12:24 PM EDT documented in this encounter Results * XR Cervical Spine 2 Or 3 Views (03/10/2018 12:24 PM EDT) Anatomical Region Laterality Modality C-spine N/A Radiographic Taylor ging 03/10/2018 12:2 4 PM EDT Impressions 03/10/2018 2:17 PM EDT Stable appearance of C6-C7 arthroplasty, no listhesis Narrative 03/10/2018 2:17 PM EDT EXAMINATION: SPINE CERVICAL (2-3VWS) CLINICAL HISTORY: ASSESS HEALING, ?? TECHNIQUE: AP lateral COMPARISON: 01/01/2018 FINDINGS: Unchanged, C6-C7 arthroplasty, normal alignment. No facet arthropathy. Procedure Note Irina Lazo MD - 03/10/2018 EXAMINATION: SPINE CERVICAL (2-3VWS) CLINICAL HISTORY: ASSESS HEALING, TECHNIQUE: AP lateral COMPARISON: 01/01/2018 FINDINGS: Unchanged, C6-C7 arthroplasty, normal alignment. No facet arthropathy. IMPRESSION Stable appearance of C6-C7 arthroplasty, no listhesis Justino Gusman MD IMG DX ORDERABLES documented in this encounter Visit Diagnoses Not on filedocumented in this encounter Care Teams Shipping And Receiving Clerk Relationship Specialty Start Date End Date Sincere Murray MD [address] [place] [address] PCP - General Family Medicine 10/13/16 06/14/19 documented as of this encounter
--- OUTSIDE RECORDS SUMMARY | 2024-06-28 02:40 | XMS_ITS | Clinical Summary ---
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 Seborrheic keratosis, inflamed 10/13/2016 Nevus 10/13/2016 Immunizations Name Administration Dates Next Due TD Adult 06/18/2006 Social History Tobacco Use Types Packs/Day Years Used Date Smoking Tobacco: Never Smokeless Tobacco: Never Sex and Gender Information Value Date Recorded Sex Assigned at Not on file Gender Identity Not on file Sexual Orientation Not on file Last Filed Vital Signs Vital Sign Reading Time Taken Comments Blood Pressure 100/80 06/16/2019 4:15 PM EDT Pulse - - Temperature 36.7 ??C (98 ??F) 06/16/2019 2:50 PM EDT Respiratory Rate 16 06/16/2019 4:15 PM EDT Oxygen Saturation 99% 06/16/2019 4:15 PM EDT Inhaled Oxygen Concentration - - Weight - - Height - - Body Mass Index - - Plan of Treatment Health Maintenance Due Date Last Done Comments CT Colonography 1964 Colonoscopy 1964 Colorectal Cancer Screening 1964 FIT DNA 1964 FIT 1964 Sigmoidoscopy (10 year) with FIT yearly 1964 Sigmoidoscopy 1964 HIV screen 1982 Hepatitis C Screening 1982 Tdap adult 1983 HPV test 1994 PAP Smear 1994 Breast Cancer Share Decision Needed 2004 Breast Cancer screening 2004 Zoster vaccine (1 of 2) 2014 Tetanus vaccine 06/18/2016 06/18/2006 Advance Directive 2019 Covid-19 Vaccine (2022- season) 2023 Influenza (Flu) vaccine (1 o f 1 - Influenza standard series) 07/17/2024 Care Teams Resource Agent Relationship Specialty Start Date End Date Unknown None PCP - General 08/16/21
--- OUTSIDE RECORDS SUMMARY | 2024-06-28 02:40 | XMS_ITS | Encounter Summary ---
[place] [address] Care Team Providers Care Unleavened Dough Mixer Name Role Phone Tk Yang MD Primary Care Provider [phone] Encounter Details Date Type Department Care Team (Latest Contact Info) Description 06/16/2019 12:57 PM EDT Hospital [place] [address] Justino Gusman MD [address] [place] [id number] Discharge Disposition: Home Social History Tobacco Use Types Packs/Day Years Used Date Smoking Tobacco: Never Smokeless Tobacco: Never Sex and Gender Information Value Date Recorded Sex Assigned at Not on file Gender Identity Not on file Sexual Orientation Not on file documented as of this encounter Discharge Instructions * Discharge Instructions* Francoise Aragon RN - 06/16/2019 2:50 PM EDT [facility] Myelogram Discharge Instructions A myelogram carries the risks of headache, bleeding and infection. Following these instructions will reduce these risks. 1. Go home and rest quietly for the remainder of the day. It is important to keep your head elevated until bedtime. You may resume your normal activities tomorrow. 2. You may resume your regular diet. Drink extra fluids for the next 24 hours. 3. You may have mild discomfort at the puncture site. If necessary, you may take Tylenol (one or two 325 mg tablets every 4 hours) for the first 24 hours after the procedure. 4. If you develop headache that is severe or lasts more than 2 days, call the Radiology Department at [facility] at the number below. 5. If you take anticoagulants such as Coumadin or Lovenox, consult with your primary care physicianbefore resuming their use. Call [facility] immediately if you have: ?? Chills, fever, or stiff neck ?? Worsening pain, swelling, or redness around the puncture site ?? Temperature greater than 101 degrees fahrenheit ?? Drainage or bleeding from the puncture site ?? Severe headache ?? Numbness or loss of strength any place below the puncture site You may contact the Insulator Tester fire prevention specialist at [phone] with any questions or concerns. Revised 11/30/15[facility] Myelogram Discharge Instructions A myelogram carries the risks of headache, bleeding and infection. Following these instructions will reduce these risks. 1. Go home and rest quietly for the remainder of the day. It is important to keep your head elevated until bedtime. You may resume your normal activities tomorrow. 2. You may resume your regular diet. Drink extra fluids for the next 24 hours. 3. You may have mild discomfort at the puncture site. If necessary, you may take Tylenol (one or two 325 mg tablets every 4 hours) for the first 24 hours after the procedure. 4. If you develop headache that is severe or lasts more than 2 days, call the Radiology Department at [facility] at the number below. 5. If you take anticoagulants such as Coumadin or Lovenox, consult with your primary care physicianbefore resuming their use. Call [facility] [place] immediately if you have: ?? Chills, fever, or stiff neck ?? Worsening pain, swelling, or redness around the puncture site ?? Temperature greater than 101 degrees fahrenheit ?? Drainage or bleeding from the puncture site ?? Severe headache ?? Numbness or loss of strength any place below the puncture site You may contact the Insulator Tester fire prevention specialist at [phone] with any questions or concerns. Revised 11/30/15 documented in this encounter Medications at Time of Discharge Medication Sig Dispensed Refills Start Date End Date triamcinolone (KENALOG) 0.1 % Cream Apply to itchy areas on arms twice daily for 2 weeks 60 g 07/24/2017 documented as of this encounter Plan of Treatment Not on file documented as of this encounter Visit Diagnoses Not on filedocumented in this encounter Care Teams Unleavened Dough Mixer Relationship Specialty Start Date End Date Tk Yang MD PCP - General General Internal Medicine 06/15/19 9/3 documented as of this encounter
--- OUTSIDE RECORDS SUMMARY | 2024-06-28 02:40 | XMS_ITS | Encounter Summary ---
Author Organization [facility] Address [facility] [place] [address] Care Team Providers Care Service Captain Name Role Phone Tk Yang MD Primary Care Provider [phone] Encounter Details Date Type Department Care Team (Late st Contact Info) Description 06/22/2019 [place] [address] Ba Reynolds MD [facility] [place] [address] Social History Tobacco Use Types Packs/Day Years Used Date Smoking Tobacco: Never Smokeless Tobacco: Never Sex and Gender Information Value Date Recorded Sex Assigned at Not on file Gender Identity Not on file Sexual Orientation Not on file documented as of this encounter Progress Notes * Ba Reynolds D - 06/22/2019 10:36 AM EDT Progress Note [...] her chronic arm itching and paresthesias. Per report,she has been in communication with Dr. Gusman (her neurosugeroun) and contacted radiology today to discuss management of her headache. 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 Plan She is traveling today from [facility] back to her house. She is going to monitor her symptoms, stay hydrated, and lie flat as much as possible. If her positional headache persists, she will call radiology tomorrow to discuss options for coordinating a CT guided blood patch. The patient concurred with this plan. Ba Reynolds MD Neuroradiology fellow documented in this encounter Plan of Treatment Not on file documented as of this encounter Visit Diagnoses Not on filedocumented in this encounter Care Teams Service Captain Relationship Specialty Start Date End Date Tk Yang MD PCP - General General Internal Medicine 06/15/1907/19 documented as of this encounter
--- OUTSIDE RECORDS SUMMARY | 2024-06-28 02:40 | XMS_ITS | Encounter Summary ---
[place] [address] Care Team Providers Care Machine Crater Name Role Phone Sincere Murray MD Primary Care Provider [phone] Encounter Details Date Type Department Care Team (Late st Contact Info) Description 01/01/2018 Interpretation Only [facility] [address] [facility] [place] [address] Justino Gusman MD [address] [place] [address] Social History Tobacco Use Types Packs/Day Years [...] Date/Time Associated Diagnosis Comments XR CERVICAL SPINE 1 VIEW Routine 01/01/2018 10:13 AM EST documented in this encounter Results * XR Cervical Spine 1 View (01/01/2018 10:13 AM EST) Anatomical Region Laterality Modality C-spine N/A Radiographic Taylor ging 01/01/2018 10:1 3 AM EST Impressions 01/01/2018 11:47 AM EST Stable appearance of the C6-7 disc arthroplasty Narrative 01/01/2018 11:47 AM EST EXAMINATION: SPINE CERVICAL (1VW) CLINICAL HISTORY: ASSESS HEALING, ?? TECHNIQUE: Lateral view of the cervical spine. COMPARISON: 10/14/2017 FINDINGS: Alignment is anatomic. There is no interval change in the positioning of the C6-7 disc arthroplasty. Vertebral body heights and intervertebral disc heights are preserved. Procedure Note Fabien Newman DO - 01/01/2018 EXAMINATION: SPINE CERVICAL (1VW) CLINICAL HISTORY: ASSESS HEALING, TECHNIQUE: Lateral view of the cervical spine. COMPARISON: 10/14/2017 FINDINGS: Alignment is anatomic. There is no interval change in the positioning ofthe C6-7 disc arthroplasty. Vertebral body heights and intervertebral discheights are preserved. IMPRESSION Stable appearance of the C6-7 disc arthroplasty Justino Gusman MD IMG DX ORDERABLES documented in this encounter Visit Diagnoses Not on filedocumented in this encounter Care Teams Machine Crater Relationship Specialty Start Date End Date Sincere Murray MD [address] [place] [address] PCP - General Family Medicine 10/13/16 06/14/19 documented as of this encounter
--- OUTSIDE RECORDS SUMMARY | 2024-06-28 02:40 | XMS_ITS | Encounter Summary ---
[place] [address] Care Team Providers Care Manager Investment Banking Name Role Phone Tk Yang MD Primary Care Provider [phone] Encounter Details Date Type Department Care Team (Late st Contact Info) Description 07/12/2020 3:55 PM EDT Ancillary Procedure Radiology Library at [facility] [place] [address] Tk Yang MD [address] [place] [address] Social History Tobacco Use Types Packs/Day Years Used Date Smoking Tobacco: Never Smokeless Tobacco: Never Sex and Gender Information Value Date Recorded Sex Assigned at Not on file Gender Identity Not on file Sexual Orientation Not on file documented as of this encounter Plan of Treatment Not on file documented as of this encounter Procedures Procedure Name Priority Date/Time Associated Diagnosis Comments FILM LIBRARY STORAGE ONLY CT SPINE Routine 07/12/2020 3:53 PM EDT documented in this encounter Results * Film Library- Storage Only CT Spine (07/12/2020 3:53 PM EDT) Narrative [facility] - 07/12/2020 3:53 PM EDT This exam is auto-finalizing. It's purpose is for storage only. Tk Yang MD G FILM LIBRARY ORD ERABLES [place], [place] documented in this encounter Visit Diagnoses Not on filedocumented in this encounter Care Teams Manager Investment Banking Relationship Specialty Start Date End Date kT Yang MD PCP - General General Internal Medicine 06/15/1907/19 documented as of this encounter
--- OUTSIDE RECORDS SUMMARY | 2024-06-28 02:40 | XMS_ITS | Encounter Summary ---
Author Organization [facility] Address [facility] [place] [address] Care Team Providers Care Child Attendant Name Role Phone Tk Yang MD Primary Care Provider [phone] Encounter Details Date Type Department Care Team (Latest Contact Info) Description 06/16/2019 12:53 PM EDT - 06/16/2019 12:56 PM EDT Hospital Encounter XRay at [address] [place] [id number] Justino Gusman MD [address] [place] [id number] Cervical radiculopathy; Itching; Neck pain Discharge Disposition: Home Social History Tobacco Use [...] Name Priority Date/Time Associated Diagnosis Comments XR FLUORO GUIDED MYELOGRAM CERVICAL SPINE Routine 06/16/2019 2:47 PM EDT Cervical radiculopathy Itching Neck pain documented in this encounter Results * XR Fluoro Guided Myelogram Cervical Spine (06/16/2019 2:47 PM EDT) Anatomical Region Laterality Modality C-spine N/A Radio Fluoroscop y Impressions 06/16/2019 4:15 PM EDT 1. ??Technically successful lumbar puncture under fluoroscopy. 2. ??Omnipaque instilled into the subarachnoid space. 3. ??See separate dictation for CT component of the myelogram. 4. ??I was present for the critical aspects of the procedure. Preliminary report signed by: Ba Reynolds at 06/16/2019 3:34 PM I have personally reviewed the image(s) and the residents interpretation and agree with the findings, Torito Ching at 06/16/2019 4:15 PM Thank you for letting us participate in the care of this patient. For questions regarding this report, please contact the number below. ? Narrative 06/16/2019 4:15 PM EDT EXAMINATION: XR FLUORO GUIDED MYELOGRAM CERVICAL SPINE CLINICAL HISTORY: hx cervical disc replacement recurrent cervical radicular symptoms artifact on mri COMPARISON: Radiographs of the cervical spine 03/10/2018 TECHNIQUE: After a discussion with the patient regarding risks and benefits of this procedure, written and oral consent was obtained. The patient was placed prone on the fluoroscopy table. A time-out was conducted just before the start of the procedure to verify the correct patient and procedure, procedure location, and all relevant critical information. The location of the ??L3-L4 intervertebral space was localized with fluoroscopy. The patient was marked, and then prepped and draped in a sterile surgical fashion. The patient's skin was anesthetized using 1% lidocaine without epinephrine, 5 cc. A 20-gauge spinal needle was advanced into the subarachnoid space, which was confirmed with the return of cerebrospinal fluid. ?? The cerebrospinal fluid was clear in color. 10 cc of Omnipaque 300 was instilled under fluoroscopic observation. ??Contrast was seen to flow freely surrounding nerve roots. The stylet was replaced and the needle was removed. The table was elevated and the column of contrast was advanced to the cervical spine. The patient was then transported in the prone position to the CT scanner. There were no immediate complications. The patient was instructed to remain on their back for 2 hours. Procedure Note Torito Ching MD - 06/16/2019 EXAMINATION: XR FLUORO GUIDED MYELOGRAM CERVICAL SPINE CLINICAL HISTORY: hx cervical disc replacement recurrent cervicalradicular symptoms artifact on mri COMPARISON: Radiographs of the cervical spine 03/10/2018 TECHNIQUE: After a discussion with the patient regarding risks and benefits of this procedure, written and oral consent was obtained. The patient was placed prone on the fluoroscopy table. A time-out was conducted just before the start of the procedure to verifythe correct patient and procedure, procedure location, and all relevantcritical information. The location of the L3-L4 intervertebral space was localized withfluoroscopy. The patient was marked, and then prepped and draped in a sterilesurgical fashion. The patient's skin was anesthetized using 1% lidocaine without epinephrine, 5 cc. A 20-gauge spinal needle was advanced into thesubarachnoid space, which was confirmed with the return of cerebrospinal fluid. The cerebrospinal fluid was clear in color. 10 cc of Omnipaque 300 was instilled under fluoroscopic observation.Contrast was seen to flow freely surrounding nerve roots. The stylet was replacedand the needle was removed. The table was elevated and the column of contrastwas advanced to the cervical spine. The patient was then transported in theprone position to the CT scanner. There were no immediate complications. The patient was instructed to remain on their back for 2 hours. IMPRESSION 1. Technically successful lumbar puncture under fluoroscopy. 2. Omnipaque instilled into the subarachnoid space. 3. See separate dictation for CT component of the myelogram. 4. I was present for the critical aspects of the procedure. Preliminary report signed by: Ba Reynolds at 06/16/2019 3:34 PM I have personally reviewed the image(s) and the residents interpretationand agree with the findings, Torito Ching at 06/16/2019 4:15 PM Thank you for letting us participate in the care of this patient. Forquestions regarding this report, please contact the number below. Justino Gusman MD IMG FLUORO ORDERABLE S documented in this encounter Visit Diagnoses Diagnosis Cervical radiculopathy Brachial neuritis or radiculitis nos Itching Unspecified pruritic disorder Neck pain Cervicalgia documented in this encounter Administered Medications Inactive Administered Medications - up to 3 most recent administrations Medication Order MAR Action Action Date Dose Rate Site iohexol (OMNIPAQUE) 300 mg/mL solution 12 mL 12 mL, Other, ONCE, 1 dose, On Andria 06/16/19 at 1515, Warning Vesicant/Irritant Medication , Routine Given 06/16/2019 3:15 PM EDT 12 mLs documented in this encounter Care Teams Child Attendant Relationship Specialty Start Date End Date Tk Yang MD PCP - General General Internal Medicine 06/15/19 9/ documented as of this encounter
--- OUTSIDE RECORDS SUMMARY | 2024-06-28 02:40 | XMS_ITS | Encounter Summary ---
Author Organization [facility] [place] [address] Care Team Providers Care Direct Chill Caster Name Role Phone Sincere Murray MD Primary Care Provider [phone] Encounter Details Date Type Department Care Team (Late st Contact Info) Description 04/19/2019 Ancillary Procedure Radiology at [facility] [address] [place] [id number] Justino Gusman MD [address] [facility] [place] [place] [address] Social History Tobacco Use Types Packs/Day Years [...] Associated Diagnosis Comments FILM LIBRARY STORAGE ONLY MR SPINE Routine 04/19/2019 12:00 AM EDT documented in this encounter Results * Film Library- Storage Only MR Spine (04/19/2019 12:00 AM EDT) Narrative RAD - 04/20/2019 12:11 PM EDT This exam is auto-finalizing. It's purpose is for storage only. Justino Gusman MD IMG FILM LIBRARY ORD ERABLES [place], [place] documented in this encounter Visit Diagnoses Not on filedocumented in this encounter Care Teams Direct Chill Caster Relationship Specialty Start Date End Date Sincere Murray MD [address] [place] [address] PCP - General Family Medicine 10/13/16 06/14/19 documented as of this encounter
--- OUTSIDE RECORDS SUMMARY | 2024-06-28 02:40 | XMS_ITS | Encounter Summary ---
Author Organization [facility] [place] [address] Care Team Providers Care Textiles And Clothing Teacher Name Role Phone Tk Yang MD Primary Care Provider [phone] Encounter Details Date Type Department Care Team (Late st Contact Info) Description 09/24/2017 Interpretation Only [address] [id number] Unknown None Social History Tobacco Use Types Packs/Day Years Used Date Smoking Tobacco: Never Smokeless Tobacco: Never Sex and Gender Information Value Date Recorded Sex Assigned at Not on file Gender Identity Not on file Sexual Orientation Not on file documented as of this encounter Plan of Treatment Not on file documented as of this encounter Procedures Procedure Name Priority Date/Time Associated Diagnosis Comments XR C-ARM Routine 09/24/2017 7:57 AM EST documented in this encounter Results * XR C-Arm (09/24/2017 7:57 AM EST) Anatomical Region Laterality Modality Other 09/24/2017 7:57 AM EST Narrative 09/24/2017 7:57 AM EST NL Historical Result Principal Music Producer: ??TATUM YUSUF C-ARM IMAGES GREATER THAN ONE HOUR: DATE: 09/24/2017. INDICATION: Fusion of joint of cervical spine by anterior approach for deformity of the cervical spine. FINDINGS: Cumulative fluoroscopy time of 8 seconds was provided. No images were submitted. Dictated by: ??Tatum Nieto M.D. Signed By: Electronically Signed By: TATUM NIETO Date: 09/24/2017 1:34 PM Procedure Note Unknown - 09/21/2020 [facility] Historical Result Principal Music Producer: TATUM NIETO C-ARM IMAGES GREATER THAN ONE HOUR: DATE: 09/24/2017. INDICATION: Fusion of joint of cervical spine by anterior approach fordeformity of the cervical spine. FINDINGS: Cumulative fluoroscopy time of 8 seconds was provided. No imageswere submitted. Dictated by: Tatum Nieto M.D. Signed By: Electronically Signed By: TATUM NIETO Date: 09/24/2017 1:34 PM Unknown PACS IMAGES documented in this encounter Visit Diagnoses Not on filedocumented in this encounter Care Teams Textiles And Clothing Teacher Relationship Specialty Start Date End Date Tk Yang MD PCP - General General Internal Medicine 06/15/1907/19 documented as of this encounter
--- OUTSIDE RECORDS SUMMARY | 2024-06-28 02:40 | XMS_ITS | Encounter Summary ---
Author Organization [facility] [place] [address] Care Team Providers Care Threshing Department Supervisor Name Role Phone Tk Yang MD Primary Care Provider [phone] Encounter Details Date Type Department Care Team (Latest Contact Info) Description 10/07/2019 11:00 AM EST Ancillary Procedure Radiology XRay at the [facility] at [facility] [address] [place] [address] Justino Gusman MD [address] [place] [address] S/P cervical spinal fusion Social History Tobacco Use Types Packs/Day Years [...] Comments XR CERVICAL SPINE 1 VIEW Routine 10/07/2019 10:54 AM EST S/P cervical spinal fusion documented in this encounter Results * XR Cervical Spine 1 View (10/07/2019 10:54 AM EST) Anatomical Region Laterality Modality C-spine N/A Digital Radiogra phy Impressions 10/07/2019 11:01 AM EST Status post interval posterior transpedicular fusion at C6-C7. No evidence of complication. Alignment is anatomic. Thank you for letting us participate in the care of this patient. For questions regarding this report, please contact the number below. ? Electronically signed by: Mariano Richter [facility] ([phone]), at 10/07/2019 11:01 AM Narrative 10/07/2019 11:01 AM EST EXAMINATION: XR CERVICAL SPINE 1 VIEW CLINICAL HISTORY: s/p cervical spinal fusion, lat view only TECHNIQUE: 1 views of the cervical spine COMPARISON: Presurgical cervical spine myelogram 06/16/2019 FINDINGS: Interval posterior fusion at C6-C7. Hardware components are intact and in good position. No suspicious lucency adjacent to the hardware components. Alignment is anatomic. No displaced fracture. No prevertebral soft tissue swelling. Facet arthropathy is moderate at C3-C4 and C7-T1. Procedure Note Mariano Richter MD - 10/07/2019 EXAMINATION: XR CERVICAL SPINE 1 VIEW CLINICAL HISTORY: s/p cervical spinal fusion, lat view only TECHNIQUE: 1 views of the cervical spine COMPARISON: Presurgical cervical spine myelogram 06/16/2019 FINDINGS: Interval posterior fusion at C6-C7. Hardware components are intact and ingood position. No suspicious lucency adjacent to the hardware components.Alignment is anatomic. No displaced fracture. No prevertebral soft tissueswelling. Facet arthropathy is moderate at C3-C4 and C7-T1. IMPRESSION Status post interval posterior transpedicular fusion at C6-C7. No evidenceof complication. Alignment is anatomic. Thank you for letting us participate in the care of this patient. Forquestions regarding this report, please contact the number below. Electronically signed by: ROSALINDA Valiente [facility]([phone]), at 10/07/2019 11:01 AM Justino Gusman MD IMG DX ORDERABLES documented in this encounter Visit Diagnoses Diagnosis S/P cervical spinal fusion Arthrodesis status documented in this encounter Care Teams Threshing Department Supervisor Relationship Specialty Start Date End Date Tk Yang MD PCP - General General Internal Medicine 06/15/1907/19 documented as of this encounter
--- OUTSIDE RECORDS SUMMARY | 2024-06-28 02:40 | XMS_ITS | Encounter Summary ---
[place] [address] Care Team Providers Care Energy Technician Name Role Phone Tk Yang MD Primary Care Provider [phone] Encounter Details Date Type Department Care Team (Latest Contact Info) Description 06/16/2019 12:00 PM EDT Laboratory Appointment Lab [address] [place] [id number] Cervical radiculopathy Social History Tobacco Use Types Packs/Day Years Used Date Smoking Tobacco: Never Smokeless Tobacco: Never Sex and Gender Information Value Date Recorded Sex Assigned at Not on file Gender Identity Not on file Sexual Orientation Not on file documented as of this encounter Plan of Treatment Not on file documented as of this encounter Procedures Procedure Name Priority Date/Time Associated Diagnosis Comments HEMOGRAM Routine 06/16/2019 12:06 PM EDT Cervical radiculopathy PROTHROMBIN TIME Routine 06/16/2019 12:0 6 PM EDT Cervical radiculopathy documented in this encounter Results * Hemogram (06/16/2019 12:06 PM EDT) White Blood Cell 5.5 4.0 - 9.5 x10(3)/[facility] LABORATORY Red Blood Cell 4.28 4.00 - 5.21 x10(6)/[facility] LABORATORY Hemoglobin 13.0 11.7 - 15.5 gm/dL [facility] Hematocrit 38.2 35.7 - 45.8 % [facility] Mean Cell Volume 89.3 82.6 - 94.4 fL [facility] Mean Cell Hemoglobin 30.4 27.1 - 32.0 pg [facility] Mean Cell Hemoglobin Concentration 34.0 31.7 - 35.0 gm/dL [facility] Platelet 224 145 - 357 x10(3)/[facility] LABORATORY RDW Standard Deviation 38.5 37.0 - 46.0 fL [facility] RDW coefficient of variation 11.9 11.5 - 14.1 % [facility] Mean Platelet Volume 10.2 7.6 - 12.9 fL [facility] NRBC% auto 0.0 % [facility] NRBC Absolute 0.000 0.000 - 0.000 x10(3)/[facility] LABORATORY Blood specimen (specimen) 06/16/2019 12:06 PM EDT 06/16/2019 12:12 PM EDT Narrative Resulting Agency Comment Spec In Lab Viraj Padilla MD HEMATOLOGY ORDERABLE S Performing Organization Address [facility] [place] [address] * Prothrombin Time (06/16/2019 12:06 PM EDT) Prothrombin Time 10.7 9.4 - 12.5 sec [facility] International Normalization Ratio 0.9 [facility] Comment: An INR <2.0 indicates adequate procoagulant activity for hemostasis in most patients without underlying bleeding disorders, though the INR may not adequately reflect hemostatic capacity in patients with liver disease and synthetic impairment. The recommended target INR range for therapeutic anticoagulation is 2.0 ? 3.0 for most applications, though lower and higher ranges may be appropriate depending on clinical circumstances. Blood specimen (specimen) 06/16/2019 12:06 PM EDT 06/16/2019 12:12 PM EDT Narrative Resulting Agency Comment Spec In Lab Viraj Padilla MD HEMATOLOGY ORDERABLE S Performing Organization Address City/[facility]/ZIP [place] [address] documented in this encounter Visit Diagnoses Diagnosis Cervical radiculopathy Brachial neuritis or radiculitis nos documented in this encounter Care Teams Energy Technician Relationship Specialty Start Date End Date Tk Yang MD PCP - General General Internal Medicine 06/15/19 9/3 documented as of this encounter
--- OUTSIDE RECORDS SUMMARY | 2024-06-28 02:40 | XMS_ITS | Encounter Summary ---
Author Organization [facility] Address [facility] [place] [address] Care Team Providers Care Manager Government Name Role Phone Sincere Murray MD Primary Care Provider [phone] Encounter Details Date Type Department Care Team (Late st Contact Info) Description 06/04/2019 [place] [address] Ba Reynolds MD [facility] [place] [address] Cervical radiculopathy (Primary Dx) Social History Tobacco Use Types Packs/Day Years Used Date Smoking Tobacco: Never Smokeless Tobacco: Never Sex and Gender Information Value Date Recorded Sex Assigned at Not on file Gender Identity Not on file Sexual Orientation Not on file documented as of this encounter Progress Notes * Ba eRynolds D - 06/04/2019 7:14 PM EDT Images [...] symptoms. Cervical spine MRI on 04/19/2019 shows artifactat the level of the hardware, which complicates [...] file Gets together: Not on file Attends quaker service: Not on file Active member of [...] a history of C6-C7 disc replacement with reportof recurrent radicular symptoms. Cervical spine MRI on [...] on file documented as of this encounter Results * Prothrombin Time (06/16/2019 12:06 PM EDT) Prothrombin Time 10.7 9.4 - 12.[address] [facility] International Normalization Ratio 0.9 [facility] Comment: An INR <2.0 indicates [...] Lab Viraj Padilla MD HEMATOLOGY ORDERABLE S [facility] [place] [address] * Hemogram (06/16/2019 12:06 PM EDT) White Blood Cell 5.5 4.0 - 9.5 x10(3)/[facility] Red Blood Cell 4.28 4.00 - 5.21 x10(6)/[facility] LABORATORY Hemoglobin 13.0 11.7 - 15.5 gm/dL [facility] Hematocrit 38.2 35.7 - 45.8 % [facility] Mean Cell Volume 89.3 82.6 - 94.[address] [facility] Mean Cell Hemoglobin 30.4 27.1 - 32.[address] [facility] Mean Cell Hemoglobin Concentration 34.0 31.7 - 35.0 gm/dL [facility] Platelet 224 145 - 357 x10(3)/[facility] LABORATORY RDW Standard Deviation 38.5 37.0 - 46.[address] [facility] RDW coefficient of variation 11.9 11.5 - 14.1 % [facility] Mean Platelet Volume 10.2 7.6 - 12.[address] [facility] NRBC% auto 0.0 % [facility] NRBC Absolute 0.000 0.000 - 0.000 x10(3)/[facility] LABORATORY Blood specimen (specimen) 06/16/2019 12:06 PM EDT 06/16/2019 12:12 PM EDT Narrative Resulting Agency Comment Spec In Lab Viraj Padilla MD HEMATOLOGY ORDERABLE S Performing Organization Address City/State/[facility] Co de Phone Number [facility] [place] [address] documented in this encounter Visit Diagnoses Diagnosis Cervical radiculopathy- Primary Brachial neuritis or radiculitis nos documented in this encounter Care Teams Manager Government Relationship Specialty Start Date End Date Sincere Murray MD [address] [place] [address] PCP - General Family Medicine 10/13/16 06/14/19 documented as of this encounter
--- OUTSIDE RECORDS SUMMARY | 2024-06-28 02:40 | XMS_ITS | Encounter Summary ---
Author Organization [facility] [place] [address] Care Team Providers Care Ship'S Pilot Name Role Phone Tk Yang MD Primary Care Provider [phone] Reason for Referral * Diagnostic Test (Routine) - Closed Specialty Diagnoses / Procedures Referred By Contac t Referred To Contact Radiology Diagnoses Cervical radiculopathy Itching Neck pain Procedures CT MYELOGRAM CERVICAL SPINE Justino Gusman MD [address] [place] [address] [facility] [place] [address] Referral ID Status Reason Start Date Expiration Date V isits Requested Visits Authorized [id number] Closed Specialty Service Requested 05/16/2019 07/14/2019 1 1 Reason for Visit * Diagnostic Test (Routine) - Closed Specialty Diagnoses / Procedures Referred By Contac t Referred To Contact Radiology Diagnoses Cervical radiculopathy Itching Neck pain Procedures CT MYELOGRAM CERVICAL SPINE Justino Gusman MD [address] [place] [address] [facility] [place] [address] Referral ID Status Reason Start Date Expiration Date V isits Requested Visits Authorized [id number] Closed Specialty Service Requested 05/16/2019 07/14/2019 1 1 Encounter Details Date Type Department Care Team (Latest Contact Info) Description 06/16/2019 12:58 PM EDT - 06/16/2019 11:59 PM EDT Hospital [place] [address] Justino Gusman MD [address] [place] [address] Cervical radiculopathy; Itching; Neck pain Discharge Disposition: [...] Procedure Name Priority Date/Time Associated Diagnosis Comments CT MYELOGRAM CERVICAL SPINE Routine 06/16/2019 3:18 PM EDT Cervical radiculopathy Itching Neck pain documented in this encounter Results * CT Myelogram Cervical Spine (06/16/2019 3:18 PM EDT) Anatomical Region Laterality Modality C-spine Computed Tomogra phy Impressions 06/16/2019 4:35 PM EDT 1. ??Mild spinal canal stenosis at C6-C7 secondary to posterior disc osteophyte complex and buckling of the ligamentum flavum. 2. ??Neural foraminal narrowing is most pronounced at C3-C4 and C6-C7, as detailed above. I have personally reviewed the image(s) and the residents interpretation and agree with the findings, Torito Ching at 06/16/2019 4:35 PM Thank you for letting us participate in the care of this patient. For questions regarding this report, please contact the number below. ? Electronically signed by: Torito Ching [facility] ([phone]), at 06/16/2019 4:35 PM Narrative 06/16/2019 4:35 PM EDT EXAMINATION: CT MYELOGRAM CERVICAL SPINE CLINICAL HISTORY: hx cervical disc replacement recurrent cervical radicular symptoms artifact on mri TECHNIQUE: CT myelogram of the cervical spine was performed following a fluoroscopic-guided lumbar puncture with instillation of 10 cc of Omnipaque 300 into the subarachnoid space. COMPARISON: MRI of the cervical spine 04/19/2019. Radiographs of the cervical spine 03/10/2018 and 01/01/2018. FINDINGS: There is unchanged minimal anterolisthesis of C3 on C4. The patient is status post disc replacement at C6-C7. Hardware is intact. No perihardware lucency. Hardware alignment is unchanged. No evidence of hardware loosening or periprosthetic fracture. No prevertebral soft tissue swelling. ??There is contrast opacification of the subarachnoid space surrounding the basal cisterns and cervical spine and upper thoracic spine. No intradural filling defects. Normal craniocervical junction. Normal morphology of the cervical spinal cord. C2-3: Small disc protrusion, eccentric to the left, produces mild spinal canal narrowing. There are uncovertebral hypertrophic and facet hypertrophic changes. Facet hypertrophic changes are most significant on the left. No neural foraminal narrowing. C3-4: Minimal disc protrusion produces minimal spinal canal narrowing. There is moderate right and moderate to severe left neural foraminal narrowing secondary to uncovertebral and facet hypertrophic changes. C4-5: Minimal disc protrusion. No significant spinal canal narrowing. There is mild left and no right neural foraminal narrowing. C5-6: Minimal disc protrusion. No significant spinal canal narrowing. There is mild bilateral neural foraminal narrowing secondary to uncovertebral and facet hypertrophic changes. C6-7: Posterior disc osteophyte complex indents the ventral thecal sac but does not contact the spinal cord. In addition there is buckling of the ligamentum flavum which narrows the posterior epidural space. Overall there is mild spinal canal narrowing. There is moderate bilateral neural foraminal narrowing secondary to uncovertebral and facet hypertrophic changes. C7-T1: Normal disc. No spinal canal or neural foraminal narrowing. Degenerative changes in the left temporal mandibular joints characterized by subchondral cystic changes in the mandibular condyle. Visualized mastoid air cells are clear. There is mucosal thickening of the visualized maxillary sinuses, right greater than left. Visualized apices are clear. Procedure Note Torito Ching MD - 06/16/2019 EXAMINATION: CT MYELOGRAM CERVICAL SPINE CLINICAL HISTORY: hx cervical disc replacement recurrent cervicalradicular symptoms artifact on mri TECHNIQUE: CT myelogram of the cervical spine was performed following afluoroscopic-guided lumbar puncture with instillation of 10 cc of Omnipaque 300 into the subarachnoid space. COMPARISON: MRI of the cervical spine 04/19/2019. Radiographs of the cervical spine 03/10/2018 and 01/01/2018. FINDINGS: There is unchanged minimal anterolisthesis of C3 on C4. The patient isstatus post disc replacement at C6-C7. Hardware is intact. No perihardwarelucency. Hardware alignment is unchanged. No evidence of hardware loosening or periprosthetic fracture. No prevertebral soft tissue swelling. There is contrast opacification of the subarachnoid space surrounding the basalcisterns and cervical spine and upper thoracic spine. No intradural fillingdefects. Normal craniocervical junction. Normal morphology of the cervical spinalcord. C2-3: Small disc protrusion, eccentric to the left, produces mild spinalcanal narrowing. There are uncovertebral hypertrophic and facet hypertrophicchanges. Facet hypertrophic changes are most significant on the left. No neuralforaminal narrowing. C3-4: Minimal disc protrusion produces minimal spinal canal narrowing.There is moderate right and moderate to severe left neural foraminal narrowingsecondary to uncovertebral and facet hypertrophic changes. C4-5: Minimal disc protrusion. No significant spinal canal narrowing.There is mild left and no right neural foraminal narrowing. C5-6: Minimal disc protrusion. No significant spinal canal narrowing.There is mild bilateral neural foraminal narrowing secondary to uncovertebral andfacet hypertrophic changes. C6-7: Posterior disc osteophyte complex indents the ventral thecal sac butdoes not contact the spinal cord. In addition there is buckling of theligamentum flavum which narrows the posterior epidural space. Overall there is mildspinal canal narrowing. There is moderate bilateral neural foraminal narrowing secondary to uncovertebral and facet hypertrophic changes. C7-T1: Normal disc. No spinal canal or neural foraminal narrowing. Degenerative changes in the left temporal mandibular joints characterizedby subchondral cystic changes in the mandibular condyle. Visualized mastoidair cells are clear. There is mucosal thickening of the visualized maxillary sinuses, right greater than left. Visualized apices are clear. IMPRESSION 1. Mild spinal canal stenosis at C6-C7 secondary to posterior discosteophyte complex and buckling of the ligamentum flavum. 2. Neural foraminal narrowing is most pronounced at C3-C4 and C6-C7, as detailed above. I have personally reviewed the image(s) and the residents interpretationand agree with the findings, Torito Ching at 06/16/2019 4:35 PM Thank you for letting us participate in the care of this patient. Forquestions regarding this report, please contact the number below. Electronically signed by: Torito Ching [facility]([phone]), at 06/16/2019 4:35 PM Justino Gusman MD IMG CT ORDERABLES documented in this encounter Visit Diagnoses Diagnosis Cervical radiculopathy Brachial neuritis or radiculitis nos Itching Unspecified pruritic disorder Neck pain Cervicalgia documented in this encounter Care Teams Ship'S Pilot Relationship Specialty Start Date End Date Tk Yang MD PCP - General General Internal Medicine 06/15/19 9 documented as of this encounter
--- OUTSIDE RECORDS SUMMARY | 2024-06-28 02:40 | XMS_ITS | Encounter Summary ---
[place] [address] Care Team Providers Care Security Police Officer Name Role Phone Tk Yang MD Primary Care Provider [phone] Encounter Details Date Type Department Care Team (Late st Contact Info) Description 07/12/2020 4:00 PM EDT Ancillary Procedure Radiology Library at [facility] [place] [address] Tk Yang MD [address] [place] [address] Social History Tobacco Use Types Packs/Day [...] FILM LIBRARY STORAGE ONLY MR SPINE Routine 07/12/2020 3:53 PM EDT documented in this encounter Results * Film Library- Storage Only MR Spine (07/12/2020 3:53 PM EDT) Narrative RAD - 07/12/2020 3:53 PM EDT This exam is auto-finalizing. It's purpose is for storage only. Tk Yang MD G FILM LIBRARY ORD ERABLES [place], [place] documented in this encounter Visit Diagnoses Not on filedocumented in this encounter Care Teams Security Police Officer Relationship Specialty Start Date End Date Tk Yang MD PCP - General General Internal Medicine 06/15/1907/19 documented as of this encounter
--- OUTSIDE RECORDS SUMMARY | 2024-06-28 02:40 | XMS_ITS | Encounter Summary ---
Author Organization Former[facility], Later [facility] [place] [address] Care Team Providers Care Credit Representative Name Role Phone Sincere Murray MD Primary Care Provider [phone] Encounter Details Date Type Department Care Team (Late st Contact Info) Description 10/14/2017 Interpretation Only [address] [place] [id number] Justino Gusman MD [address] [place] [address] Social History Tobacco Use Types Packs/Day Years [...] Comments XR CERVICAL SPINE 1 VIEW Routine 10/14/2017 1:22 PM EST documented in this encounter Results * XR Cervical Spine 1 View (10/14/2017 1:22 PM EST) Anatomical Region Laterality Modality C-spine N/A Radiographic Taylor ging 10/14/2017 1:22 PM EST Impressions 10/14/2017 1:42 PM EST C6-C7 disc arthroplasty without evidence of complication. Narrative 10/14/2017 1:42 PM EST EXAMINATION: SPINE CERVICAL (1VW) CLINICAL HISTORY: ANTERIOR DISC ARTHOPLASTY AT C6-7, ?? TECHNIQUE: Lateral cervical spine radiograph COMPARISON: None FINDINGS: Status post C6-C7 disc arthroplasty. Arthroplasty components are in good position. Cervical spine alignment is normal. Intervertebral disc space height is preserved at remaining levels. Procedure Note Mariano Richter MD - 10/14/2017 EXAMINATION: SPINE CERVICAL (1VW) CLINICAL HISTORY: ANTERIOR DISC ARTHOPLASTY AT C6-7, TECHNIQUE: Lateral cervical spine radiograph COMPARISON: None FINDINGS: Status post C6-C7 disc arthroplasty. Arthroplasty components are in good position. Cervical spine alignment is normal. Intervertebral disc spaceheight is preserved at remaining levels. IMPRESSION C6-C7 disc arthroplasty without evidence of complication. Justino Gusman MD IMG DX ORDERABLES documented in this encounter Visit Diagnoses Not on filedocumented in this encounter Care Teams Credit Representative Relationship Specialty Start Date End Date Sincere Murray MD [address] [place] [address] PCP - General Family Medicine 10/13/16 06/14/19 documented as of this encounter
--- OUTSIDE RECORDS SUMMARY | 2024-06-28 02:41 | XMS_ITS | Encounter Summary ---
[place] [address] Care Team Providers Care Urban Planning Teacher Name Role Phone Sincere Murray MD Primary Care Provider [phone] Encounter Details Date Type Department Care Team (Late st Contact Info) Description 07/24/2017 Refill Dermatology at [address] [place] [phone] Orly Bowie, [employer]IC Social History Tobacco Use Types Packs/Day Years [...] on filedocumented in this encounter Care Teams Urban Planning Teacher Relationship Specialty Start Date End Date Sincere Murray MD [address] [place] [address] PCP - General Family Medicine 10/13/16 06/14/19 documented as of this encounter
--- OUTSIDE RECORDS SUMMARY | 2024-06-28 02:41 | XMS_ITS | Encounter Summary ---
Author Organization [facility] [place] [address] Care Team Providers Care Bed Maker Name Role Phone Sincere Murray MD Primary Care Provider [phone] Encounter Details Date Type Department Care Team (Late st Contact Info) Description 10/17/2016 Telephone Dermatology at [address] [place] [address] Orly Bowie LPN Social History Tobacco Use Types Packs/Day Years Used Date Smoking Tobacco: Never Sex and Gender Information Value Date Recorded Sex Assigned at Not on file Gender Identity Not on file Sexual Orientation Not on file documented as of this encounter Miscellaneous Notes * Telephone Encounter - Orly Mcdonough LPN - 10/17/2016 9:44 AM EST Return call from patient. Reviewed biopsy results; two benign moles, no further treatment necessary, return to clinic as needed. Patient voiced understanding. * Telephone Encounter - Orly Mcdonough LPN - 10/17/2016 9:28 AM EST Attempted to contact patient to review biopsy results; two benign moles, no further treatment necessary, return to clinic as needed. Message left. documented in this encounter Plan of Treatment Not on file documented as of this encounter Visit Diagnoses Not on filedocumented in this encounter Care Teams Bed Maker Relationship Specialty Start Date End Date Sincere Murray MD [address] [place] [address] [address] [place] [address] PCP - General Family Medicine 10/13/16 06/14/19 documented as of this encounter
--- OUTSIDE RECORDS SUMMARY | 2024-06-28 02:41 | XMS_ITS | Encounter Summary ---
Author Organization [facility] Address [facility] [place] [address] Care Team Providers Care Manager Materials Management Name Role Phone Sincere Murray MD Primary Care Provider [phone] Reason for Visit * Reason Comments Skin Check Encounter Details Date Type Department Care Team (Late st Contact Info) Description 07/24/2017 11:30 AM EDT Office Visit Dermatology at [address] [phone] Javon Scott MD [address] [facility] [place] [address] Brachioradial pruritus Social History Tobacco Use Types Packs/Day Years Used Date Smoking Tobacco: Never Smokeless Tobacco: Never Sex and Gender Information Value Date Recorded Sex Assigned at Not on file Gender Identity Not on file Sexual Orientation Not on file documented as of this encounter Progress Notes * Javon Scott MD - 07/24/2017 11:30 AM EDT PROBLEM: Itchy arms. Kaela follows up and is now 52. All summer long she has had itching of the dorsal arm and forearm, nothing on the ventral surfaces. She has also been noticing some numbness in her fingers. It can occur just sitting in a chair and as she speaks with me her right thumb is numb. It can also occur when she lies on her arm in bed at night, either one side or the other. Patient spent last winter in [place] until February. She was home a month before the itching began, however, in her arms in March. She again plans this year going down to [place] some time in late August or early September. Physical examination reveals a pleasant 52-year-old woman with blue eyes and blond hair, and with excoriations without actual dermatitis on the dorsal lateral aspects of her arms and forearms bilaterally. There is no involvement on the forearms. It does not involve the chest or the back. She has no other areas of itching that are symptomatic. A/P: Brachioradial pruritus. a. Recommend workup for thumb and hand numbness. Advised her to see her PCP at [facility]. b. Recommend that for symptomatic relief of her itching she begin Sarna lotion, applying on a p.r.n. basis. Obtain over the counter. c. Begin triamcinolone 0.1% cream, 60 g dispensed, to be applied b.i.d. for 2 weeks, then discontinue. d. Discussed diagnosis. Explained the suspected etiology as being one of a pinched nerve/nerves leading to the itching that she is experiencing in combination when this affected skin is exposed to sun. Stressed the importance of wearing long sleeves, protecting her skin from the sun. Cc: Sincere Murray MD documented in this encounter Plan of Treatment Not on file documented as of this encounter Visit Diagnoses Diagnosis Brachioradial pruritus documented in this encounter Care Teams Manager Materials Management Relationship Specialty Start Date End Date Sincere Murray MD [address] [place] [address] PCP - General Family Medicine 10/13/16 06/14/19 documented as of this encounter
--- OUTSIDE RECORDS SUMMARY | 2024-06-28 02:41 | XMS_ITS | Encounter Summary ---
[place] [address] Care Team Providers Care New Order Clerk Name Role Phone Sincere Murray MD Primary Care Provider [phone] Reason for Visit * Reason Comments Skin Check Follow-up Encounter Details Date Type Department Care Team (Late st Contact Info) Description 10/13/2016 10:45 AM EST Office Visit Dermatology at [address] [place] [address] Javon Scott MD [address] [facility] [address] [place] [address] Seborrheic keratosis, inflamed; Nevus Social History Tobacco Use Types Packs/Day Years Used Date Smoking Tobacco: Never Sex and Gender Information Value Date Recorded Sex Assigned at Not on file Gender Identity Not on file Sexual Orientation Not on file documented as of this encounter Progress Notes * Javon Scott MD - 10/13/2016 10:45 AM [...] keratosis Nevus Benign neoplasm of skin, site unspecified documented in this encounter Care Teams New Order Clerk Relationship Specialty Start Date End Date Sincere Murray MD [address] [place] [address] PCP - General Family Medicine 10/13/16 06/14/19 documented as of this encounter
[2024-06-28 12:32] LABS: Abs Immature Grans 0.02 10^3/uL (0.0-0.06); Absolute Basophil Count 0.03 10^3/uL (0.0-0.2); Absolute Lymphocyte Count 1.07 10^3/uL (1.2-3.4); Absolute Monocyte Count 0.44 10^3/uL (0.1-0.8); Basophils % 0.5 %; Eosinophils % 7.2 %; HCT 39.3 % (36.0-46.0); HGB 12.9 g/dL (11.2-15.7); Immature Grans % 0.4 %; Lymphocytes % 19.2 %; MCH 29.8 pg (27.0-33.0); MCHC 32.8 % (32.0-36.0); MCV 91 fL (80-95); MPV 10.2 fL (8.0-11.0); Monocytes % 7.9 %; Neutrophils % 64.8 %; Platelet Count 198 10^3/uL (130-400); RBC 4.33 10^6/uL (3.93-5.22); RDW 12.1 % (11.7-14.6); RDW-SD 40.1 fL; WBC 5.56 10^3/uL (4.4-10.8)
[2024-06-28 15:30] LABS: Iron 28 ug/dL (50-170); Total Iron Binding Capacity 332 ug/dL (250-450)
[2024-06-28 15:43] LABS: Calculated LDL 79 mg/dL (<100); Cholesterol 203 mg/dL (<200); Ferritin 192 ng/mL (8-252); HDL Cholesterol 65 mg/dL (40-60); TSH (W/Ref FT4) 2.76 uIU/mL (0.36-3.74); Triglyceride 296 mg/dL (<150)
[2024-06-28 18:56] LABS: Hemoglobin A1C 5.7 % (<5.7)
[2024-06-29 09:52] LABS: Transferrin 254 mg/dL (201-352)
== END 2024-06-28 02:39 | disposition home or self-care (01) ==
LOC: LBO 02:39
PROVIDERS: PCP Nurse Practitioner Family; Visit Provider Nurse Practitioner Family
DX: Z13.220 Encounter for screening for lipoid disorders (principal); R53.83 Other fatigue; Z13.1 Encounter for screening for diabetes mellitus
CPT/HCPCS: 36415; 80061; 82728; 83036; 83540; 83550; 84443; 84466; 85025

== ENCOUNTER 2024-08-04 11:50 | Outpatient (CLI) | payer BC, SELFPAY ==
--- NOTE | 2024-08-04 | DI.RAD_ITS ---
Exam(s) XR CHEST 2V PA LATERAL EXAM: XR CHEST 2V PA LATERAL CLINICAL HISTORY: PERSISTENT COUGH, R05.3. TECHNIQUE: 2D digital imaging was performed. COMPARISON: No exams were available for comparison FINDINGS: 2 views: Heart size is normal. The mediastinum is not widened. Lungs are clear. No infiltrates nor pleural effusions. Fusion hardware in the lower cervical spine is noted IMPRESSION: No acute pulmonary findings. DATA REPOSITORY: RADIATION DOSE DELIVERED:
== END 2024-08-04 12:10 ==
PROVIDERS: PCP Nurse Practitioner Family; Visit Provider Physician Assistant Medical
DX: R05.3 Chronic cough (principal)
CPT/HCPCS: 71046

== ENCOUNTER 2025-02-08 00:50 | Outpatient (CLI) | payer BC, SELFPAY ==
--- NOTE | 2025-02-08 06:30 | DI.MAMMO_ITS ---
Exam(s) MAMMO SCREENING EXAM: MAMMO SCREENING CLINICAL HISTORY: screening,z12.39 TECHNIQUE: Mammograms were interpreted according to the usual protocol including computer analysis w [employer] CAD system, tomosynthesis and C-view imaging. COMPARISON: 2014 through 2022 FINDINGS: The breasts are composed of scattered fibroglandular densities, Breast Density category B. No suspicious masses or suspicious microcalcifications are seen. No skin thickening or abnormal axillary lymph nodes are seen. There has been no significant change from prior exams. IMPRESSION: BI-RADS Category 1, Negative mammogram Yearly screening mammography is recommended. Breast Density - Category B, scattered fibroglandular densities. A negative radiographic report should not delay biopsy if a dominant or clinically suspicious mass is present. Up to ten percent of cancers are not identified on mammography. A negative report may reinforce clinical impression. Adenosis and dense breasts may obscure an underlying neoplasm. False positive reports average 6 to 10%. Patient will receive a letter notifying them of these results.
== END 2025-02-08 01:10 ==
PROVIDERS: PCP Nurse Practitioner Family; Visit Provider Obstetrics & Gynecology
DX: Z12.31 Encounter for screening mammogram for malignant neoplasm of breast (principal); R92.323 Mammographic fibroglandular density, bilateral breasts
CPT/HCPCS: 77063; 77067